=== PATIENT | male | born 1940 | race Caucasian/White ===

== ENCOUNTER 2017-04-19 14:02 | Day surgery (SDC) | payer MEDICARE ==
[~2017-04-19] VITALS: Ht 177.8 cm; Wt 84.0 kg
[~2017-04-19 14:02] MED LIST: ALBU8.5H2 IH; AMLO10TA3 PO; ASPI-628 PO; ATEN50TA PO; DIAZ10TA3 PO; FUR20 PO; Furosemide 10 mg/mL 2 mL Inj IV ONE; METF500T4 PO; SIMV40TA5 PO
[2017-04-19 14:15] VITALS: BP 142/78; PULSE 51; RESP 16; O2SAT 95
[2017-04-19 14:45] VITALS: BP 129/80; PULSE 66; RESP 16; O2SAT 96
[2017-04-19 15:14] VITALS: BP 143/78; PULSE 67; RESP 16
[2017-04-19 15:50] VITALS: BP 143/71; PULSE 74; RESP 16; O2SAT 97
[2017-04-19 16:18] VITALS: BP 148/71; PULSE 71; RESP 16; O2SAT 97
[2017-04-19] MEDS ORDERED: CARV6.25 PO (16:33)
--- NOTE | 2017-04-19 17:30 | NUR ---
MOC- Patient arrived to unit with . Denies complaints. Lasix 40mg IV given per order. Patient voiding per urinal and had 1025cc output after med in approx. 2 hours time period. VSS monitored every 30 minutes and remained stable.
== END 2017-04-19 23:59 | disposition home or self-care (01) ==
LOC: MOCO 14:02
PROVIDERS: ATTEND Internal Medicine
DX: I50.22 Chronic systolic (congestive) heart failure (principal); I25.10 Atherosclerotic heart disease of native coronary artery without angina pectoris; I42.9 Cardiomyopathy, unspecified; R60.9 Edema, unspecified; Z95.1 Presence of aortocoronary bypass graft
CPT/HCPCS: 96374; J1940

== ENCOUNTER 2017-06-10 00:16 | Day surgery (SDC) | payer MEDICARE ==
[2017-06-10] VITALS (14 sets, daily range): BP systolic 137–167; BP diastolic 63–96; PULSE 60–73; RESP 14–18; O2SAT 96–98
[~2017-06-10] VITALS: Ht 177.8 cm; Wt 85.1 kg
[~2017-06-10 00:16] MED LIST changes: -AMLO10TA3 PO; -ASPI-628 PO; +ASPI-973 PO; -ATEN50TA PO; +CARV6.25 PO; +CHOL5000 PO; +CYAN500 PO; -DIAZ10TA3 PO; -FUR20 PO; -Furosemide 10 mg/mL 2 mL Inj IV ONE; -METF500T4 PO; +TORS20TA3 PO; +TRAM50TA2 PO
[2017-06-10] MEDS ORDERED: 0.9% Sodium Chloride 1,000 ML IV SCH (07:40)
[2017-06-10 11:53] LABS: BASOPHILS % (AUTO) 0.4 % (0-3); EOSINOPHILS % (AUTO) 1.2 % (0-5); MONOCYTES % (AUTO) 6.3 % (4-12); Mean Corpuscular Volume 88.7 fL (81-100); NEUTROPHILS % (AUTO) 78.3 % (40-74); Platelet Count 186 bil/L (150-400)
[2017-06-10] MEDS ORDERED: Vancomycin Inj 1,000 MG in IV Premix 1 EACH IV SCH (12:05)
[2017-06-10] MEDS ORDERED: GLIM1TAB PO (12:10)
[2017-06-10] MEDS ORDERED: LISI2.5T PO (12:10)
[2017-06-10] MEDS ORDERED: Heparin 10,000 Unit/1,000 mL NS Premix IV ONE ×2 (12:21→14:30)
[2017-06-10] MEDS ORDERED: Vancomycin 1,000 mg Inj ONE (12:21)
[2017-06-10] MEDS ORDERED: Bupivacaine-MPF 0.5% 30 mL Inj ONE (12:21)
[2017-06-10] MEDS ORDERED: 0.9% Sodium Chloride 250 ML ONE (12:49)
[2017-06-10] MEDS ORDERED: fentaNYL-PF 50 mCg/mL 2 mL Inj ONE ×2 (13:01→13:55)
--- NOTE | 2017-06-10 13:04 | NUR ---
KIMANI: Pt arrived to [facility] for ICD placement at 1110 to room 5. VSS, no c/o pain. IV X2 started, blood drawn and labs sent per order, pt and both state understanding to procedural expectations. Pt taken to wheelabrator operator for procedure per wheelabrator operator staff around 1245.
[2017-06-10] MEDS: 0.9% Sodium Chloride 1,000 ML IV SCH (15:17)
[2017-06-10] MEDS ORDERED: HYDROcodone-APAP 5-325 mg Tablet PO PRN (15:20)
[2017-06-10] MEDS ORDERED: Ondansetron 2 mg/mL 2 mL Inj IVPUSH PRN (15:20)
--- NOTE | 2017-06-10 16:13 | DRSVH ---
PROCEDURE: X-RAY CHEST ONE VIEW, PORTABLE ([id number]) INDICATIONS: For new leads placed TECHNIQUE: One view of the chest was acquired. COMPARISON: None. FINDINGS: Surgical changes and devices: Median sternotomy wires present and recent placement of left chest AICD . Lungs and pleura: No pleural effusions or pneumothorax. Lungs are clear. Mediastinum: Mediastinal contours appear normal. Heart size is normal. Bones and chest wall: No suspicious bony lesions. Overlying soft tissues appear unremarkable. IMPRESSION: No immediate complications status post cardiac pacemaker placement. Dictated by: Darryl Joaquin [facility] Interpreted: Karol Martins MD on 06/10/2017 at 16:11 Transcribed by: DENEEN on 06/10/2017 at 16:11 Approved by: Karol Martins MD, PhD on 06/10/2017 at 16:21
--- NOTE | 2017-06-10 18:15 | NUR ---
Transfer Pt transferred from [facility] following placement of Biventricular IVCD. Dressing on upper L Chest is C/D/I with a faint shadow of pink drainage outlined. Pt is Alert and oriented, RA, SL x2. Denies pain at this time, steady gait observed. Pt is accompanied by Zeina (spouse). Pt reports will have a friend drive then home at discharge. Call light in reach, will continue to monitor.
[2017-06-10] MEDS ORDERED: Albuterol 2.5 mg/3 mL Inhalation Solution NEB PRN (18:35)
--- NOTE | 2017-06-10 22:14 | OP ---
[address] [address] OPERATIVE REPORT PATIENT: ITZEL HARRISON : 1940 MR#: [id number] ADMIT: 06/10/2017 JOB ID: [id number] DATE OF SURGERY: 06/10/2017 PREOPERATIVE DIAGNOSIS(ES): 1. Severe ischemic cardiomyopathy with ejection fraction 25% to 30%. 2. Coronary artery disease, status post bypass grafting. 3. Left bundle-branch block with QRS duration 166 msec. 4. [place] [employer] class 3 heart failure symptoms. POSTOPERATIVE DIAGNOSIS(ES): 1. Severe ischemic cardiomyopathy with ejection fraction 25% to 30%. 2. Coronary artery disease, status post bypass grafting. 3. Left bundle-branch block with QRS duration 166 msec. 4. [place] Heart Association class 3 heart failure symptoms. PROCEDURES PERFORMED: 1. Biventricular implantable cardioverter-defibrillator implantation with placement of a multilead ICD generator, ICD lead, coronary sinus LV lead and right atrial pacing lead. 2. Coronary sinus venogram. 3. Fluoroscopy. SURGEON: Everardo Diamond MD. ROOM WORKER: Negra Saldana. IMPLANTED DEVICE: 1. [employer], Model [id number], serial #[id number]. 2. Right atrial lead [employer] 2088 TC, 52 cm, serial #[id number]. 3. RV lead [employer] 7122Q, 65 cm, serial #[id number]. 4. LV lead [employer] 1458Q, 86 cm, serial #[id number]. ANESTHESIA: Bolus dosing of Versed and fentanyl were utilized for an appropriate level of sedation. The patient is a pleasant 77-year-old man with advanced heart failure symptomology, ischemic heart disease, left bundle-branch block. After discussion of risks and benefits of biventricular ICD implantation, he opted to proceed. PROCEDURAL DESCRIPTION: Following informed signed consent, the patient was taken to the EP laboratory in a fasting, nonsedated state where he was prepped and draped in the usual sterile fashion. The left infraclavicular region was infiltrated with 40 cc of a 50/50 mixture of bupivacaine and lidocaine. Once adequate anesthesia had been achieved, a 3 cm transverse incision was performed 2 cm below the left clavicle. Dissection was carried down to the pectoralis fascia and a pocket was then fashioned using a combination of electrocautery and blunt dissection. Once adequate hemostasis had been achieved, access was gotten to the left axillary vein with a micropuncture needle three times to deploy three 0.035, 3 mm J guidewires. Over the first of these, a 7-Luxembourger tear-away sheath was advanced. Once the guidewire was removed, an active fixation lead was advanced to the RV outflow tract and into the RV apex. The lead was affixed in position using its associated active fixation screw. The lead was connected to the external analyzer and demonstrated appropriately sensed R waves,impedance, and capture threshold. The lead was checked to 10 V and there was no evidence of diaphragmatic stimulation. Attention was now paid to the coronary sinus lead. Over another of the previously deployed J guidewires, a 9-Luxembourger tear-away sheath was advanced. Once the guidewire was removed, a [employer] CS delivery sheath was delivered over a decapolar Super CS catheter which was then used to engage the coronary sinus. A manual injection of contrast showed the patent coronary sinus without appreciable branches with the exception of one small branch at the 2 o'clock position. The sheath was pulled back and another injection was done with balloon occlusion showing a larger branch at the 5 o'clock position just past the coronary sinus os and beyond the middle cardiac vein. This was chosen as our branch of choice. A quadripolar CS lead was brought to the field and advanced into the branch of choice over a Whisper wire. The lead was connected to the external analyzer and demonstrated appropriately sensed R waves, impedance, capture threshold. The lead was checked to 10 V and there was no evidence of diaphragmatic stimulation. The short 9-Luxembourger sheath was slit loose and the atrial lead was tended to. Next, a 6-Luxembourger tear-away sheath was advanced over the last of the three J guidewires. Through this, a pace sensed pacemaker lead was advanced to the right atrial appendage. It was affixed in position using an active fixation screw it was connected to the external analyzer and demonstrated appropriately sensed R waves, impedance, and capture threshold. Lead was checked to 10 V and there was no evidence of diaphragmatic stimulation. Finally, the long CS delivery sheath was slit loose under fluoroscopic guidance to ensure nondislodgement of the lead. Once the position and redundancy of all three leads had been confirmed in multiple fluoroscopic views, the leads were connected to the prepectoral fascia using the associated anchoring sleeves and two Ethibond sutures. The pocket was then copiously irrigated with antibiotic solution. The leads were connected to a generator, the generator was placed into the pocket and was affixed to the floor of the pocket using 1-0 Ti-Cron suture. The incision was then closed with running layers of absorbable suture. The wound was dressed with skin adhesive and a small dressing. At the end of the procedure, the needle, sponge, and instrument counts were all correct. COMPLICATIONS: None. ESTIMATED BLOOD LOSS: 10-20 cc. FINDINGS: 1. Right atrial lead 2.3 mV, 410 ohms, 0.75 V at 0.4 msec. 2. RV lead 11.9 mV, 530 ohms, 0.5 V at 0.4 msec. 3. LV lead, 440 ohms, 1.25 V at 1 msec (M3 to RV coil). FINAL PROGRAMMED PARAMETERS: 1. DDD 60-130 beats per minute. 2. VF zone at 187 beats per minute. ATP during charge, followed by shocks. 3. VT zone at 171 beats per minute with six rounds of ATP, followed by shocks. 4. VT monitor zone at 150 beats per minute. IMPRESSION: Successful biventricular implantable cardioverter-defibrillator implantation. PLAN: 1. Stat portable chest x-ray. 2. PA and lateral chest x-ray in the morning. 3. Device interrogation. 4. IV vancomycin through tomorrow. 5. Doxycycline x7 days. 6. Wound check in one week. ATTENDING STATEMENT: Everardo Diamond MD, electrophysiology attending, was present for and supervised/performed all aspects of this procedure.
[2017-06-11 00:38] VITALS: BP 158/94; PULSE 65; RESP 18; O2SAT 99
[2017-06-11] MEDS: 0.9% Sodium Chloride 1,000 ML IV SCH (01:17)
[2017-06-11] MEDS ORDERED: Vancomycin Inj 1,000 MG in IV Premix 1 EACH IV ONE (03:20)
--- NOTE | 2017-06-11 04:09 | NUR ---
PT ACTIVITY/PAIN Pt has been up in room, independent. Pt has had intermittent c/o "5-7" pain at pacemaker site. PRN pain medication and ice have alleviated pain symptoms for pt. Continue to monitor. Call light in reach. Pts in room. Intentional rounding.
[2017-06-11 04:54] VITALS: BP 164/89; PULSE 76; RESP 18; O2SAT 96
[2017-06-11 08:35] VITALS: BP 181/98; PULSE 79; RESP 20; O2SAT 98
--- NOTE | 2017-06-11 09:39 | PCM.DIMED ---
Discharge Instructions Date of Service Jun 11, 2017 Dates of Hospitalization Discharge Diagnosis Discharge Diagnosis Ischemic Cardiomyopathy LBBB Diabetes Hypertension Diet Discharge Diet: Low fat, Low Sodium, Heart Healthy, Diabetic Activity Discharge Activity: Other (Keep incision dry one day. Do not extend left elbow high above shoulder for one month. Do not lift, push or pull more than 10 lbs with the left arm for one month.) Call your provider Call your provider for: Fever or Chills, Bleeding, Excessive diarrhea Patient Instructions Follow-up in: 1 week Mid-level Provider (F9): Lyle Miller PA-C Follow-up with Mid-level in: 6 weeks (Appt. on 08-08-17 on 1:30 (arrival time) at [facility] Cardiology - [place]) Lyle Miller PA-C Jun 11, 2017 09:39
[2017-06-11] MEDS ORDERED: DOXY100C2 PO (10:05)
--- NOTE | 2017-06-11 10:31 | DRSVH ---
PROCEDURE: X-RAY CHEST, TWO VIEWS ([id number]) INDICATIONS: For new lead placement TECHNIQUE: 2 views of the chest were acquired. COMPARISON: [facility], CR, XR CHEST 1VW (PORTABLE), 06/10/2017, 15:21. [facility], CR, XR CHEST 2VW, 04/05/2017, 11:11. FINDINGS: Surgical changes and devices: Post median sternotomy. Stable positioning of left chest AICD. Lungs and pleura: No pleural effusions or pneumothorax. Lungs are clear. Mediastinum: Mediastinal contours are normal. Heart size is enlarged. Bones and chest wall: No suspicious bony abnormalities. Soft tissues appear unremarkable. IMPRESSION: Stable chest post pacer placement. Dictated by: Darryl Joaquin A Interpreted: Karol Martins MD on 06/11/2017 at 10:21 Approved by: Karol Martins MD, PhD on 06/11/2017 at 10:28
[2017-06-11 10:42] VITALS: PULSE 62
--- NOTE | 2017-06-11 10:43 | DIS ---
[address] [address] DISCHARGE SUMMARY PATIENT: ITZEL HARRISON : 1940 MR#: [id number] ADMIT: 06/10/2017 JOB ID: [id number] DIS: 06/11/2017 REASON FOR ADMISSION: Biventricular defibrillator implant. CHIEF COMPLAINT: Exertional dyspnea and lightheadedness. HISTORY: The patient is a pleasant, 77-year-old man, with known coronary artery disease and prior bypass grafting with now a severe ischemic cardiomyopathy and an LV ejection fraction of 25-30%, with left bundle branch block and a QRS duration of 166 msec. He also has diabetes mellitus and, despite optimal heart function medications, he continues to have exertional dyspnea, and has had some lightheadedness. He has not had syncope or prior cardiac arrest, but is at increased risk. He was admitted for implant of a biventricular pacing defibrillator. COURSE IN HOSPITAL: The patient was admitted to the [facility] and taken to the laborer wood preserving plant, where he received the 3-chamber pacing defibrillator device without incident. He was taken back to the [facility] for recovery from sedation and then transferred up to the [facility] for overnight telemetry monitoring. He did well overnight and had no bleeding from the incision. The pocket is without hematoma. His chest x-ray in the morning showed good lead positions and no pneumothorax. Device evaluation showed good capture and sensing thresholds. He was ambulatory without difficulty and felt well for discharge home. He had only mild incisional area pain and noted actually feeling less short of breath. DISPOSITION: The patient was discharged home in good condition with a followup appointment at the [facility] Cardiology office in one week. He was asked not to extend his left elbow above the shoulder for one month, and not to lift, push or pull more than 10 pounds with the left arm for one month. He will follow his heart healthy, low-salt diet and diabetic diet, and take medications as prescribed. DISCHARGE MEDICATIONS: This is a long list. MEDICATIONS: 1. Doxycycline 100 mg daily for one week. 2. Albuterol inhaler, 2 puffs q.4 h. p.r.n. wheezing. 3. Aspirin 81 mg daily. 4. Carvedilol 6.25 mg b.i.d. 5. Vitamin D3, 5000 units daily. 6. Vitamin B12, 1000 mcg daily. 7. Glimepiride 1 mg daily. 8. Lisinopril 2.5 mg daily. 9. Simvastatin 40 mg q.h.s. 10. Torsemide 40 mg daily. 11. Tramadol 50 mg, 1 or 2 tabs p.o. q.6 h. p.r.n. pain. FINAL DIAGNOSES: 1. Ischemic cardiomyopathy. 2. Diabetes mellitus. 3. Hypertension. 4. Left bundle branch block.
== END 2017-06-11 11:17 | disposition home or self-care (01) ==
LOC: SOUO 00:16 → MPC 18:05 → SOUO 06-11 11:17
PROVIDERS: ATTEND Internal Medicine Cardiovascular Disease
DX: I25.5 Ischemic cardiomyopathy (principal); Z00.6 Encounter for examination for normal comparison and control in clinical research program; I25.10 Atherosclerotic heart disease of native coronary artery without angina pectoris; Z95.1 Presence of aortocoronary bypass graft; N40.0 Benign prostatic hyperplasia without lower urinary tract symptoms; I44.7 Left bundle-branch block, unspecified; I10 Essential (primary) hypertension; N28.9 Disorder of kidney and ureter, unspecified; E78.5 Hyperlipidemia, unspecified; Z79.82 Long term (current) use of aspirin; Z79.84 Long term (current) use of oral hypoglycemic drugs
CPT/HCPCS: 33225; 33249; 36415; 71010; 71020; 80048; 85025; 85610; 93005; 94799; 99152; 99153; C1725; C1769; C1777; C1882; C1892; C1898; C1900; J0131; J1644; J2250; J3010; J3370; J7050

== ENCOUNTER 2017-07-02 14:42 | Emergency (ER) | payer MEDICARE ==
[~2017-07-02] VITALS: Ht 177.8 cm; Wt 81.8 kg
[~2017-07-02 14:42] MED LIST changes: +DOXY100C2 PO; +GLIM1TAB PO; +LISI2.5T PO
[2017-07-02 14:51] VITALS: BP 178/88; PULSE 84; RESP 15; O2SAT 97
--- NOTE | 2017-07-02 15:31 | ED.REPORT ---
HPI-Extremity Problem Upper Date of Service Jul 02, 2017 ED Provider: Dr. De Anda Pt is a 77 y/o male anticoagulated on Eliquis w/ a hx of known LUE DVT, DM, CAD s/p CABG, HTN, ischemic cardiomyopathy, presenting to the ED c/o worsening of left forearm and hand swelling onset 2 weeks ago. 2 weeks ago, he had a pacemaker/defibrillator paced by enterprise infrastructure architect Dr. Diamond. Afterwards he developed entire LUE edema and an US showed evidence of DVT prompted him to be started on Eliquis 5 mg BID about 4 days ago. He was also started on Keflex incase of infection. His edema causes him some mild pain. He says that his edema has been worsening since started Eliquis. Pt denies fever, chills, diaphoresis. Nursing Notes Stated Complaint: LEFT ARM/HAND SWELLING Chief Complaint: Extremity Trauma Nursing Notes Reviewed: Yes Allergies: Coded Allergies: No Known Allergies (Unverified , 05/06/17) Scheduled Aspirin (Aspirin) 81 Mg Tablet 81 MG PO DAILY Carvedilol (Coreg) 6.25 Mg Tablet 6.25 MG PO BID Cholecalciferol (Vitamin D3) (Vitamin D3) 5,000 Unit Capsule 5,000 UNIT PO DAILY Cyanocobalamin (Vitamin B12) 500 Mcg Tablet 1,000 MCG PO DAILY Doxycycline Hyclate (Doxycycline Hyclate) 100 Mg Capsule 100 MG PO DAILY Glimepiride (Glimepiride) 1 Mg Tablet 1 MG PO DAILYAC Lisinopril (Lisinopril) 2.5 Mg Tablet 2.5 MG PO DAILY Simvastatin (Simvastatin) 40 Mg Tablet 40 MG PO HS Sulfamethoxazole/Trimeth 400-80 mg (Bactrim 400-80 mg) 1 Each Tablet 1 TABLET PO BID Sulfamethoxazole/Trimeth 400-80 mg (Bactrim 400-80 mg) 1 Each Tablet 1 TABLET PO BID Torsemide (Torsemide) 20 Mg Tablet 40 MG PO DAILY Tramadol (Tramadol) 50 Mg Tablet 1-2 TAB PO Q6HPRN Scheduled PRN Albuterol HFA (Proair HFA) 8.5 Gm Hfa.aer.ad 2 PUFFS IH Q4 PRN PRN For Wheezing General Time Seen by MD: 15:31 Chief Complaint Other (L arm swelling) Hx Obtained From: Patient Arrived By: Walk-in Onset Occurred: More than a week ago... (2 weeks) Symptom Duration: Since onset Location: : Arm left Quality: Painful Severity: Current: Mild Severity: Maximum: No pain Associated with: Reports: Swelling Pertinent Negative: Exacerbated by nothing Recent Healthcare: Recent doctor visit, Recent testing, Previous diagnosis, Previous surgery, Prior workup Similar Sx Previous: No Past Medical History Past Medical History Ischemic cardiomyopathy. Diabetes mellitus. Hypertension. Left bundle branch block CAD s/p CABG COPD Bilateral cataracts LUE DVT after a pacemaker insertion Past Surgical History CABG Smoking History Never Smoker Social History Alcohol Use: "Social" Drug Use: Denies drug use Other Social History: Good social support Ambulatory Status Independent Review of Systems Constitutional: Denies: Chills, Fever Musculoskeletal: Reports: Extremity pain, Extremity swelling Skin: Denies Diaphoresis, Denies Rash Complete sys rev & neg: except as marked. Physical Exam Initial Vital Signs Vital Signs (First) Date Time Temp Pulse Resp B/P Pulse Ox O2 Delivery O2 Flow Rate FiO2 07/02/17 14:51 36.5 84 15 178/88 97 Room Air Initial VS: Reviewed, Vital signs abnormal Head / Eyes: Atraumatic, Normocephalic ENT: Mucous membranes moist, Conjunctiva normal Neck: Supple, Full range of motion Respiratory: Breath sounds normal, Clear to auscultation, No respiratory distress Cardiovascular: Regular rate & rhythm, Heart sounds normal, Intact distal pulses Abdomen / GI: Soft, Non-tender Lower Extremities: Vascular intact, Neuro intact, No swelling Skin: Warm, Dry, No cyanosis Neurologic: Alert, Oriented, Nonfocal Psychiatric: Mood/affect normal, Behavior normal, Normal thought content General/Constitutional: Awake, Alert, No acute distress, Well appearing, Cooperative, Not toxic appearing Upper Extremity / MS: Atraumatic, Full range of motion, Non-tender, No erythema , No deformity, Neurologic intact, Vascular intact, No clubbing/cyanosis Significant swelling of LUE that extends from the hand up to lower arm. Mildly warm. No erythema. Puncture wound back of left hand with no erythema, pus, or drainage. Signs of previous bleeding present. 2/4 radial and ulnar pulses Interpretation & Diagnostics Interpretation & Diagnostics: US LUE: DVT still present but without progression Lab Results Interpretation Result Diagram: 07/02/17 1621 07/02/17 1621 Test 07/02/17 16:21 White Blood Count 10.1th/mm3 (3.8-10.1) Red Blood Count 3.91mil/mm3 (4.40-5.80) Hemoglobin 10.8g/dL (13.8-17.2) Hematocrit 33.3% (41.0-50.0) Mean Corpuscular Volume 85.2fL (81-100) Mean Corpuscular Hemoglobin 27.6pg (27.0-35.0) Mean Corpuscular Hemoglobin Concent 32.4% (32.0-37.0) Red Cell Distribution Width 14.1% (12.3-15.4) Platelet Count 275bil/L (150-400) Neutrophils (%) (Auto) 78.5% (40-74) Lymphocytes (%) (Auto) 10.1% (14-46) Monocytes (%) (Auto) 10.0% (4-12) Eosinophils (%) (Auto) 1.0% (0-5) Basophils (%) (Auto) 0.2% (0-3) Erythrocyte Sedimentation Rate 65mm/hr (0-30) Prothrombin Time 10.9sec (8.1-12.5) Prothromb Time International Ratio 1.02ratio Activated Partial Thromboplast Time 31.0sec (22.8-33.0) Sodium Level 137mEq/L (134-144) Potassium Level 4.4mEq/L (3.5-5.2) Chloride Level 96mEq/L (97-108) Carbon Dioxide Level 24mmol/L (18-29) Blood Urea Nitrogen 45mg/dL (8-27) Creatinine 2.52mg/dL (0.76-1.27) Estimat Glomerular Filtration Rate 27mL/min (>59) Glucose Level 101mg/dL (60-99) Lactic Acid Level 0.7mmol/L (0.4-2.0) Calcium Level 9.4mg/dL (8.5-10.1) Total Bilirubin 0.4mg/dL (0.0-1.2) Aspartate Amino Transf (AST/SGOT) 17U/L (0-50) Alanine Aminotransferase (ALT/SGPT) 12U/L (0-44) Alkaline Phosphatase 73U/L (25-160) C-Reactive Protein 15.1mg/dL (0.0-0.5) Total Protein 7.7g/dL (6.4-8.4) Albumin 3.9g/dL (3.4-5.0) Procalcitonin 0.31ng/mL (0.00-0.08) Re-Eval/Medical Decision Med Decision/Clinical Course 77-year-old male with a history of recently diagnosed left upper extremity DVT placed on elequis one week ago and possible cellulitis on Keflex, presents with increasing left arm swelling and pain. His arm does not appear definitively cellulitic, however his inflammatory markers are elevated and his symptoms have been worsening. I repeated an ultrasound of his left upper extremity to see if his clot burden had increased despite being on elequis, but ultrasound showed similar clot burden. Given his increasing inflammatory markers and his acute kidney injury, I recommended that he be admitted to the hospital for IV antibiotics and evaluation and treatment of his kidney injury. The patient adamantly refused and wanted to leave AGAINST MEDICAL ADVICE. I advised that we ought to at least add a second antibiotic such as Bactrim to his Keflex and have him follow-up with his PCP later this week. Patient was agreeable to this , but left before his Bactrim prescription could be given to him along with his discharge papers. His nurse called him to let him know this was being sent to his local pharmacy, which I did. Re-Evaluation/Progress : Time of Eval: 17:02 Re-Evaluation/Progress Note: Pt rechecked. Discussed US findings and lab results. I recommended admission given his increasing infection markers and worsening kidney function despite being on Keflex. He adamantly refuses admission because he feels fine. Discussed the possibility that he may go into renal failure or have worsening infection in his arm which could cause . He still wants to be discharged. He will leave AGAINST MEDICAL ADVICE. F/U instructions and RTER warnings given. All questions addressed. Counseled Regarding: Diagnosis, Lab results, Need for follow-up, When/why to return to ED Discharge & Departure Impression: Primary Impression: Deep venous thrombosis of left upper extremity Affected thrombotic vein of extremity: unspecified vein of extremity Chronicity: acute Qualified Code: I82.622 - Acute embolism and thrombosis of deep veins of left upper extremity Additional Impressions: ALYSIA (acute kidney injury) Cellulitis Site of cellulitis: extremity Site of cellulitis of extremity: upper extremity Laterality: left Qualified Code: L03.114 - Cellulitis of left upper limb Disposition: AGAINST MEDICAL ADVICE Discharge Condition All VS Reviewed: Yes Condition: Stable Additional Instructions: The ultrasound showed that you still have a venous blood clot in your arm but it has not worsened. Your kidney function has significantly decreased and you do have elevated markers of infection. I recommended you be admitted today for these problems but you have declined. I would like you to take the full courses of both antibiotics, the Keflex that you have are restarted and now the Bactrim that I am prescribing you today. You need to follow-up with Dr. Gutierrez within 1 week. Earlier would be better. This is important. Tell him the situation and try to get in. Return to the emergency department for any new or worsening symptoms, and plan on being admitted if things are worsening. Referrals: Dwayne Gutierrez DO (PCP) Everardo Diamond MD Scribe Attestation Portions of this note were transcribed by Clif Snyder. I, Dr. De Anda personally performed the history, physical exam and medical decision-making; I reviewed and confirmed the accuracy of the information in the transcribed note. copies to: Everardo Diamond MD; Dwayne Gutierrez Gary R DO Jul 02, 2017 15:31 CLIF SNYDER Jul 02, 2017 15:38
[2017-07-02 16:37] LABS: BASOPHILS % (AUTO) 0.2 % (0-3); Mean Corpuscular Hemoglobin 27.6 pg (27.0-35.0); Mean Corpuscular Volume 85.2 fL (81-100); NEUTROPHILS % (AUTO) 78.5 % (40-74); Platelet Count 275 bil/L (150-400)
[2017-07-02 16:40] LABS: ERYTHROCYTE SEDIMENTATION RATE 65 mm/hr (0-30)
[2017-07-02 16:43] LABS: INR 1.02 ratio
[2017-07-02] MEDS ORDERED: SULF1TAB34 PO ×2 (17:34→18:16)
--- NOTE | 2017-07-02 22:46 | DRSVH ---
PROCEDURE: US VENOUS ARM DUPLEX UNILATERAL, LEFT INDICATIONS: LUE swelling s/p pacemaker placement TECHNIQUE: Real-time imaging, as well as color and pulse Doppler interrogation, was performed of the left upper extremity deep veins from the inferior neck to the antecubital fossa. COMPARISON: US Noe, US VENOUS ARM DPLX UNI LT, 06/27/2017, 16:18. FINDINGS: Partial clot seen within the right internal jugular vein. Visualized portions of the subcl shonna vein, axillary, and brachial veins are free of intraluminal thrombus. Where physically possibl e, the veins are normally compressible. Color and pulse Doppler demonstrate normal intraluminal flow , with expected phasicity and pulsatility. Additional scanning of the cephalic and basilic veins of the superficial system demonstrate a small segment of clot within the brachial vein of the distal arm . IMPRESSION: 1. Clot within the left internal jugular vein and the left brachial vein in the arm. Dr. De Anda given results bibasilar referring 1630 hrs. 07/02/2017. Dictated by: Darryl Joaquin [facility] Interpreted: Lyle Velásquez MD on 07/02/2017 at 17:09 Approved by: Lyle Velásquez M.D. on 07/02/2017 at 22:45
== END 2017-07-02 18:21 | disposition left against medical advice (07) ==
LOC: SED 14:42
DX: I82.622 Acute embolism and thrombosis of deep veins of left upper extremity (principal); E11.29 Type 2 diabetes mellitus with other diabetic kidney complication; I13.10 Hypertensive heart and chronic kidney disease without heart failure, with stage 1 through stage 4 chronic kidney disease, or unspecified chronic kidney disease; N17.9 Acute kidney failure, unspecified; I25.10 Atherosclerotic heart disease of native coronary artery without angina pectoris; Z95.1 Presence of aortocoronary bypass graft; Z79.82 Long term (current) use of aspirin

== ENCOUNTER 2017-07-26 10:43 | Inpatient (IN) | payer MEDICARE ==
[~2017-07-26] VITALS: Ht 177.8 cm; Wt 84.8 kg
[2017-07-26] VITALS (8 sets, daily range): BP systolic 109–157; BP diastolic 58–89; PULSE 66–93; RESP 12–18; O2SAT 96–99
[~2017-07-26 10:43] MED LIST changes: +SULF1TAB34 PO
--- NOTE | 2017-07-26 11:39 | ED.REPORT ---
HPI-Extremity Problem Lower Date of Service Jul 26, 2017 ED Provider: Dr. Manny Potter MD A 77 year old male with a history of type II diabetes mellitus, ischemic cardiomyopathy, hypertension, LUE DVT secondary to pacemaker insertion. COPD, CAD s/p CABG and recent pacemaker placement (06/10/17) presents to the ED with joint swelling that began yesterday. Affected areas include the patient's bilateral knees, bilateral ankles, and left wrist. He endorses significant swelling, pain and warmth the affected joints. He has been unable to stand due to the discomfort. Recent NM scan on 07/25 revealed possible osteomyelitis involving the left hand and osteoarthritis involving the bilateral wrists and 1st-4th interphalangeal joints. Patient is currently on Eloquis and took his dose this morning LAP HAND TOOL. He denies recent fever or chills. Nursing Notes Stated Complaint: BILATERAL KNEE, FEET, AND ARMS SWELLING Chief Complaint: Extremity Trauma Nursing Notes Reviewed: Yes Allergies: Coded Allergies: No Known Allergies (Unverified , 07/26/17) Scheduled Apixaban (Eliquis) 5 Mg Tablet 5 MG PO BID Carvedilol (Coreg) 6.25 Mg Tablet 6.25 MG PO BID Cholecalciferol (Vitamin D3) (Vitamin D3) 5,000 Unit Capsule 5,000 UNIT PO DAILY Glimepiride (Glimepiride) 1 Mg Tablet 1 MG PO DAILYAC Lisinopril (Lisinopril) 2.5 Mg Tablet 2.5 MG PO QPM Simvastatin (Simvastatin) 40 Mg Tablet 40 MG PO HS Torsemide (Torsemide) 20 Mg Tablet 20 MG PO BID Scheduled PRN Albuterol HFA (Proair HFA) 8.5 Gm Hfa.aer.ad 2 PUFFS IH Q4 PRN PRN For Wheezing Tramadol (Tramadol) 50 Mg Tablet 1 TAB PO QID PRN PRN For Pain General Time Seen by MD: 11:39 Chief Complaint Other (Multiple Joint Swelling) Hx Obtained From: Patient Arrived By: Walk-in Onset Occurred: Yesterday Symptom Duration: Since onset Location: : Ankle left: Ankle right: Knee left: Knee right Quality: Painful Severity: Current: Moderate Severity: Maximum: Moderate Associated with: Reports: Swelling, Unable to walk Pertinent Negative: Pt denies other symptoms Recent Healthcare: No recent hospitalization, Recent doctor visit Past Medical History Past Medical History Ischemic cardiomyopathy. Diabetes mellitus. Hypertension. Left bundle branch block CAD s/p CABG COPD Bilateral cataracts LUE DVT after a pacemaker insertion Past Surgical History CABG Reports: Pacemaker insertion Smoking History Never Smoker Social History Alcohol Use: "Social" Drug Use: Denies drug use Other Social History: Good social support Ambulatory Status Independent Review of Systems + joint warmth Constitutional: Denies: Chills, Fever Musculoskeletal: Reports: Joint pain, Joint swelling Complete sys rev & neg: except as marked. Physical Exam Initial Vital Signs Vital Signs (First) Date Time Temp Pulse Resp B/P Pulse Ox O2 Delivery O2 Flow Rate FiO2 07/26/17 10:52 37.2 66 15 109/58 96 Room Air Initial VS: Reviewed Head / Eyes: Atraumatic, Normocephalic, PERRL Neck: Supple, Non-tender, Full range of motion Skin: Warm, Dry, No cyanosis Neurologic: Alert, Oriented, Nonfocal Psychiatric: Mood/affect normal, Behavior normal, Normal thought content Lower Extremity / Pelvis / MS: Atraumatic, Neurologic intact, Vascular intact Right Knee: Positive: Swelling present..., Tenderness present..., Warmth present Left Knee: Positive: Joint effusion present (Palpable), Swelling present..., Tenderness present..., Warmth present LOWER EXTREMITIES: No overriding cellulitis present Ankle / Foot: Atraumatic, Neurologic intact, Vascular intact Right Ankle: Positive: Swelling present..., Tenderness present..., Warmth present Left Ankle: Positive: Swelling present..., Tenderness present..., Warmth present ANKLE: No overriding cellulitis present General/Constitutional: Awake, Alert, No acute distress Respiratory / Chest: Atraumatic, Breath sounds NL, Breath sounds = bilat, No respiratory distress Cardiovascular: Heart rate NL, Regular rhythm, Heart sounds NL Abdomen: Atraumatic, Soft, Non-tender Upper Extremity / MS: Atraumatic, Inspection NL, Neurologic intact, Vascular intact Wrist / Hand: Atraumatic, Neurologic intact, Vascular intact Left Wrist: Positive: Swelling present..., Warmth present WIRST: No overriding cellulitis present Interpretation & Diagnostics NM Scan 07/25/17 IMPRESSION: 1. Probable osteomyelitis involving the head of the second metacarpal and head of the fifth metacarpal and the base of the second proximal phalange. 2. Probable osteoarthritis involving the the wrists bilaterally, the first CMC joints bilaterally, the first interphalangeal joints bilaterally, the left second proximal interphalangeal joint, the left third metacarpal are from plain joint and the right fourth metacarpal-phalangeal. Dictated by: Karol Martins MD, PhD on 07/25/2017 at 16:19 Lab Results Interpretation Result Diagram: 07/26/17 1220 07/26/17 1220 Test 07/26/17 12:20 White Blood Count 10.2th/mm3 (3.8-10.1) Red Blood Count 3.69mil/mm3 (4.40-5.80) Hemoglobin 10.0g/dL (13.8-17.2) Hematocrit 31.3% (41.0-50.0) Mean Corpuscular Volume 84.8fL (81-100) Mean Corpuscular Hemoglobin 27.1pg (27.0-35.0) Mean Corpuscular Hemoglobin Concent 31.9% (32.0-37.0) Red Cell Distribution Width 15.0% (12.3-15.4) Platelet Count 189bil/L (150-400) Neutrophils (%) (Auto) 78.7% (40-74) Lymphocytes (%) (Auto) 9.7% (14-46) Monocytes (%) (Auto) 10.2% (4-12) Eosinophils (%) (Auto) 1.0% (0-5) Basophils (%) (Auto) 0.1% (0-3) Erythrocyte Sedimentation Rate 77mm/hr (0-30) Sodium Level 132mEq/L (134-144) Potassium Level 4.4mEq/L (3.5-5.2) Chloride Level 92mEq/L (97-108) Carbon Dioxide Level 21mmol/L (18-29) Blood Urea Nitrogen 36mg/dL (8-27) Creatinine 2.57mg/dL (0.76-1.27) Estimat Glomerular Filtration Rate 26mL/min (>59) Glucose Level 116mg/dL (60-99) Lactic Acid Level 1.0mmol/L (0.4-2.0) Calcium Level 9.5mg/dL (8.5-10.1) Magnesium Level 2.1mg/dL (1.6-2.6) Total Bilirubin 0.4mg/dL (0.0-1.2) Aspartate Amino Transf (AST/SGOT) 18U/L (0-50) Alanine Aminotransferase (ALT/SGPT) 10U/L (0-44) Alkaline Phosphatase 63U/L (25-160) Troponin T 0.034ug/L (0.0-0.011) Total Protein 7.3g/dL (6.4-8.4) Albumin 3.6g/dL (3.4-5.0) Procalcitonin 0.66ng/mL (0.00-0.08) ECG Interpretation ECG Interpretation: Atrial sensed ventricular paced complexes Rate 68 bpm Time: 11:56 Interpreted by: ED physician Normal ECG Interpretation: No change from prior ECGs (06/11/17) X-Ray Chest Interpretation Chest Xray Interpretation: IMPRESSION: Postoperative changes, no acute cardiopulmonary abnormality Dictated by: Ivan Shelby M.D. on 07/26/2017 at 12:28 Interpretation / Wet Read by: Interpret - Radiologist Re-Eval/Medical Decision Med Decision/Clinical Course Concern for infectious etiology, including osteomyelitis or multiple septic joints. Discussed with the patient the need for an arthrocentesis however he took his THIS morning and it will be deferred until he IS worn off. Broad spectrum antibiotics initiated after 3 sets of blood cultures. Discussed with both the hospitalist and infectious disease. Patient will be admitted. Re-Evaluation/Progress #1: Time of Eval: 12:13 Re-Evaluation/Progress Note: Pt is informed of potential arthrocentesis procedure. He understands and agree with plan. Re-Evaluation/Progress #2: Time of Eval: 12:53 Patient Status: Condition improved Re-Evaluation/Progress Note: His is informed of current results and the plan to admit for further work-up. All questions are addressed at this time. Consultation #1: Referral / Consult Name: Dwayne Bueno MD Call Returned at: 11:58 Photo Tech: Will see patient, Agrees with eval, Agrees with plan Note: Discussed patient condition. Requesting MRI of the hand and wrist and recommends attempting arthrocentesis Consultation #2: Referral / Consult Name: Dwayne Bueno MD Call Returned at: 13:03 Photo Tech: Will see patient, Agrees with eval, Agrees with plan Note: Infectious disease - Informed of patient's last Eloquis dose. Agrees to postpone arthrocentesis until Eolquis wears off. Consultation #3: Referral / Consult Name: Jazmyn Salcedo DO Consulted With: Hospitalist Call Returned at: 13:15 Photo Tech: Will see patient, Agrees with eval, Agrees with plan, Accepts admit Note: Discussed patient condition. Agrees to accept patient at this time with broad spectrm antibiotics. Counseled Regarding: Diagnosis, Lab results, Need for admission Discharge & Departure Impression: Primary Impression: Polyarteritis Disposition: ADMITTED TO HOSPITAL Discharge Condition All VS Reviewed: Yes Condition: Stable Referrals: Dwayne Gutierrez DO (PCP) Scribe Attestation Portions of this note were transcribed by Trish Jenkins. I, Dr. Vicki Potter, personally performed the history, physical exam and medical decision-making; I reviewed and confirmed the accuracy of the information in the transcribed note. Signed by: Trish Jenkins, 07/26/17. copies to: Dwayne Gutierrez Timothy S DO Jul 26, 2017 11:39 TRISH JENKINS Jul 26, 2017 11:52
[2017-07-26] MEDS ORDERED: 0.9% Sodium Chloride 1,000 ML IV ONE (11:50)
[2017-07-26] MEDS ORDERED: Vancomycin Dose per Pharmacist XX ONE (11:50)
[2017-07-26] MEDS ORDERED: Piperacillin-Tazo 3.375 Gm Inj 3.375 GM in Dextrose 5% Minibag Plus 50 ML IV ONE (11:50)
[2017-07-26] MEDS ORDERED: Vancomycin Inj 1,750 MG in 0.9% Sodium Chloride 500 ML IV ONE (12:10)
--- NOTE | 2017-07-26 12:30 | DRSVH ---
PROCEDURE: X-RAY CHEST ONE VIEW, PORTABLE ([id number]) INDICATIONS: infection TECHNIQUE: One view of the chest was acquired. COMPARISON: 06/11/2017 FINDINGS: Surgical changes and devices: AICD. Median sternotomy with CABG. Lungs and pleura: No pleural effusions or pneumothorax. Lungs are clear. Mediastinum: Mediastinal contours appear normal. Heart size is normal. Bones and chest wall: No suspicious bony lesions. Overlying soft tissues appear unremarkable. IMPRESSION: Postoperative changes, no acute cardiopulmonary abnormality Dictated by: Ivan Shelby M.D. on 07/26/2017 at 12:28 Approved by: Ivan Shelby M.D. on 07/26/2017 at 12:29
[2017-07-26] MEDS ORDERED: Lidocaine 1%-Epi 1:100,000 20 mL Inj ONE (12:45)
[2017-07-26 13:04] LABS: BASOPHILS % (AUTO) 0.1 % (0-3); MONOCYTES % (AUTO) 10.2 % (4-12); Mean Corpuscular Hemoglobin 27.1 pg (27.0-35.0); Mean Corpuscular Volume 84.8 fL (81-100); NEUTROPHILS % (AUTO) 78.7 % (40-74); Platelet Count 189 bil/L (150-400)
[2017-07-26 13:24] LABS: Magnesium 2.1 mg/dL (1.6-2.6)
[2017-07-26 13:48] LABS: TROPONIN T 0.034 ug/L (0.0-0.011)
[2017-07-26] MEDS ORDERED: APIX5TAB PO (14:05)
[2017-07-26] MEDS ORDERED: Alum-Mag Hydrox-Simeth 30 mL Suspension PO PRN ×2 (14:05→15:50)
[2017-07-26] MEDS ORDERED: Ondansetron 2 mg/mL 2 mL Inj IVPUSH PRN ×2 (14:05→15:50)
[2017-07-26 14:26] LABS: ERYTHROCYTE SEDIMENTATION RATE 77 mm/hr (0-30)
[2017-07-26] MEDS ORDERED: Polyethylene Glycol (PEG) 17 Gm Powder PO PRN (15:50)
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
[2017-07-26] MEDS ORDERED: Glucose 40% Oral Gel 15 Gm Tube PO PRN (16:35)
--- NOTE | 2017-07-26 16:46 | PCM.ADCARE ---
Advance Care Planning Note Plan: Date: 07/26/2017 Diagnosis: Polymyalgia Acute on chronic systolic CHF Chronic renal failure Hypertension Diabetes Hyperlipidemia History of DVT DJD of the lower spine Purpose of encounter: Goals of care Parties in attendance: The patient, his (Zeina), Dr. Salcedo Decisional capacity: Good Plan: The patient and his are aware of the current diagnosis and would like to continue to be full code. The patient understands that this means for chest compressions, intubation, pressors, and all measures involved with CPR. CODE STATUS: Full code Time spent with advanced care planning: Greater than 16 minutes Jazmyn Salcedo DO Jul 26, 2017 16:46
--- NOTE | 2017-07-26 18:06 | PCM.PHAPRO ---
Progress Date of Service: Jul 26, 2017 Polyarthralgia, generalized weakness, and left upper shoulder many pain Vancomycin Management per Pharmacy: Indication: Osteomyelitis Goal Vanco Trough: 15-20 mg/dL Age: 77 yo male Labs: WBC: 10.1 ESR: 77 Procalcitonin: 0.66 SrCr: 2.57 mg/dL (Baseline ~2.1 mg/dL) Est CrCl: ~25 mL/min Nephrotoxic Drugs: Lasix 40 mg IV BID and Zosyn IV Vitals: All stable (no fevers or elevation in HR) Recommendation: Load: Vancomycin 1750 mg IV x 1 given in ED Maintenance: Vancomycin 750 mg IV q24h Vanco Trough: Draw on 07/29/17 @ 0730 prior to 3rd dose (early due to pt age and poor renal function) Pharmacy to continue to monitor and adjust dose as needed. Thank You, Anna Esquivel, Pharm D. Anna Esquivel Jul 26, 2017 18:06
[2017-07-26] MEDS: Furosemide 10 mg/mL 4 mL Inj IVPUSH SCH (18:07)
[2017-07-26] MEDS: Insulin LISPRO 300 Unit/3 mL Inj SUBQ SCH ×2 (18:08→22:00)
--- NOTE | 2017-07-26 18:44 | CONS ---
[address] [address] CONSULTATION REPORT PATIENT: ITZEL HARRISON : 1940 MR#: [id number] ADMIT: 07/26/2017 JOB ID: [id number] DATE OF SERVICE: 07/26/2017 INFECTIOUS DISEASE CONSULTATION: REASON FOR CONSULTATION: Possible osteomyelitis left hand plus symmetrical polyarthritis bilateral lower extremities. HISTORY OF PRESENT ILLNESS: This is an extremely complex case of a gentleman who has underlying multiple medical problems including cardiomyopathy secondary to ischemia from coronary artery disease as well as diabetes. He also has chronic renal insufficiency as well as degenerative joint disease. In any event, the patient was in his usual state of compensated health until he reports sometime earlier this summer when he developed some swelling of the lower extremities which seemed to improve with diuretics. On June 10 he underwent placement of a pacer in his left upper chest. This was initially uncomplicated, but within a couple of weeks postop he developed significant swelling of his left upper extremity. An ultrasound showed that he had a DVT and for that reason he was started on Eliquis oral anticoagulation. He also had erythema and tenderness, especially in the wrist and hand area, and there was concern about possible infection. He was treated initially with some prophylactic doxycycline after his pacer placement; but, once it was thought there could be significant infection there, he was started on a very prolonged course of Bactrim. He reports that on the Bactrim there seemed to be some improvement in the swelling and tenderness in his left hand but it never completely went away and he has had reduced function and pain, especially along the left 2nd knuckle. Recently he was reevaluated as an outpatient and an x-ray of the hand showed possible osteomyelitis of the second metacarpal head area. A bone scan was also done which showed what was thought to be osteomyelitis in that area and osteoarthritis was seen in multiple other joints. In addition to the swelling in the left upper extremity, which may represent osteomyelitis and has not resolved at this point, the patient also has developed a much more worrisome problem which is the rapid development of severe arthritis in his bilateral lower extremities. He reports that just within the past few days he has developed really symmetrical impressive swelling, redness, and tenderness, in his lower extremities. This is so severe that he literally cannot walk and, in fact, cannot bear weight and get to the bathroom or stand at all because of this symmetrical knee and ankle pain. He notes that his ankles and knees, all four joints, are swollen, red, and tender. He has never had this before. He denies any history of crystalline gout disease such as gout or pseudogout, or any history of lupus or rheumatoid arthritis. He further states he has not traveled anywhere nor has he had contact with sick persons, though he does have contact with an 8-year-old grandchild. In association with this rapidly progressive polyarthritis he has been profoundly weak and lightheaded at times, and in fact has fallen because of the weakness and pain in the joints. He has noted some subjective chills, but no fevers or sweats. He does not have any significant headache, sore throat, cough, shortness of breath, GI or symptoms in association with this polyarthritis and persistent pain in his left wrist. PAST MEDICAL HISTORY: 1. Organic heart disease: a. Ischemic cardiomyopathy, with ejection fraction only 25%. b. Coronary artery disease status post CABG. c. Left bundle branch block. d. Status post pacer June 10, 2017. 2. Diabetes mellitus. 3. Hypertension. 4. DVT left upper extremity following pacer. 5. Questionable history of COPD. 6. Possible osteomyelitis, left hand. 7. Symmetrical lower extremity polyarthritis, onset about July 22. SOCIAL HISTORY: The patient is a lifelong nonsmoker who occasionally drinks a beer but really insignificant. 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 FAMILY HISTORY: Negative for tuberculosis, rheumatoid arthritis, or lupus in any first- or second-degree relatives. REVIEW OF SYSTEMS: Was done. The patient states he has no headache or acute visual change. No sore throat or trouble swallowing. No stiff neck. He has no significant cough, nor does he have any chest pain. He has had over the past week or two his says occasional cough with some minimal sputum production but that seems to have resolved. No nausea or vomiting. No dysuria, urgency, or frequency. The arthritis in the joints has been described above. There is no skin rash, except that in association with his left wrist, which is chronically swollen and tender as is his dorsal left hand; that goes back to June of this year. He has no acute neurologic complaints though apparently has some degree of underlying diabetic neuropathy. The remainder of his review of systems is negative. PHYSICAL EXAMINATION: Reveals a friendly and alert elderly gentleman in no acute distress. He appears about his stated age of 77. He is afebrile here, just having been evaluated in the ED. Temp 37.2, 75 pulse, respiratory rate 15, blood pressure 125/72. He is saturating well on room air. His mental status is sharp. He has no temporal wasting or evidence of head trauma. Eyes without conjunctivitis or conjunctival hemorrhage. His nose is normal. Oral cavity with just scattered lower teeth left, and these teeth are in very poor repair. No obvious gingivitis. No pharyngitis. His neck is supple, without adenopathy. Lungs reasonably clear bilaterally. Cardiac tones with a regular rate and rhythm. The pacer in the left upper chest is soft and nontender. There is no hepatosplenomegaly, no ascites. No suprapubic fullness and he has no Mike catheter at this time. His hips seem to have reasonable range of motion and his elbows and shoulders certainly have normal range of motion, but his ankles are swollen and somewhat tender to palpation, with obvious effusions, but not especially tender. His ankles on the other hand, and especially the right ankle, are both swollen, erythematous, and warm. The right ankle approaches hot to the touch, in fact it is so severely involved he basically cannot move his knees or his ankles secondary to severe pain and swelling. There is minimal peripheral edema and I think most of what we are seeing around the ankles is actually arthritis or jen-joint inflammation. There is reasonable blood flow, it would appear, to his extremities as they are certainly warm and in fact hot and there is good capillary refill. Neurologically the patient is difficult to assess because his legs are too painful to move but he can certainly move all four extremities. LABORATORIES: Include white count 10,000, sed rate 77, platelets 189. His creatinine is 2.57, which apparently is near his baseline. Calculated creatinine clearance is only about 25. LFTs normal. Procalcitonin 0.66, which is certainly indeterminate given his renal dysfunction. Blood cultures negative at this time. Multiple sets are pending at my request as I have discussed this case numerous times through the day with the ER staff. IMAGING: Chest x-ray done today shows postop changes related to his bypass but no acute infiltrates or other abnormalities. IMPRESSION: This is an extremely mysterious case, which I discussed in detail with Dr. James Schwartz of Rheumatology this afternoon to try and get some ideas. It almost seems as if there are two things going on with this patient, one of which may be osteomyelitis involving the area of the left dorsal hand around the 2nd metacarpophalangeal joint. This diagnosis is suggested by the plain film of the left hand as well as the MRI scan. I am a little bit skeptical of this in that the patient has been treated for almost a month, it sounds like, with oral Bactrim and there has been little improvement and it may in fact have gotten worse. We certainly have no idea what the microbiology might be of this but it does seem to have followed a DVT. I wonder if this could represent a complex regional pain syndrome involving the left upper extremity rather than osteomyelitis. Even more mysterious is the four joint involvement of both knees and both ankles. This has a broad differential diagnosis. I have considered a number of things including serum sickness due to the Bactrim he has been receiving, acute rheumatic fever, septic joints with seeding in a diabetic due to Staph endocarditis, calcium pyrophosphate deposition (CPPD) or gout, parvovirus infection, hepatitis B or hepatitis C with reactive polyarthritis, lupus, or rheumatoid arthritis, or even a vasculitis. His findings are certainly dramatic and rapidly evolving. It is still unclear what bacteria if any may be involved in this process. RECOMMENDATIONS: After great deal of reading, discussion, and thinking about this case during the course of the day, I have the following recommendations: 1. Nasal MRSA screen should be done. I note that the patient has already been started on vancomycin and Zosyn, but if this nasal MRSA screen is negative I would immediately stop the vancomycin as I think this is unlikely to be a MRSA left wrist osteomyelitis, and I partly base that impression on the fact that he has been on antibiotics for over a month. 2. I would consider discontinuing the Zosyn, though I am not completely convinced of this maneuver. The patient has been treated for a month for a presumptive evolving infection involving his left upper extremity and we actually have no idea what the microbiology is. It may be reasonable to stop and observe a bit in this nontoxic patient in hopes of getting a later clean biopsy or aspirate that will guide our therapy. 3. I would strongly consider a MRI scan of the left upper extremity, particularly the hand and wrist, to see whether we can confirm a diagnosis of osteomyelitis. If there is evidence of significant osteo, I would consider consulting Hand Surgery to see if a debridement and culture might be indicated to give us some better handle on the possible microbiology here. 4. Tapping of one of the knees or one of the ankles I think would be very useful in terms of ruling out crystalline disease or polymicrobial bacterial arthritis. Fluid from the knee or ankle should be sent for crystal studies as well as Gram stain and cultures. 5. We await our pending blood cultures. 6. TEO and rheumatoid factor have been ordered. 7. I have also ordered hep B and hep C serologies, as well as parvovirus serologies. 8. ASO titer has been ordered. 9. I have ordered films of both knees and both ankles in hopes of documenting a diagnosis of CPPD. 10. Uric acid will be ordered. 11. My overall sense of this case is that the bilateral symmetrical lower extremity arthritis is likely not infectious and may constitute some autoimmune or serum sickness like illness. It is also possible that this constitutes some form of crystalline induced arthritis. What is going on in his left wrist and hand is very difficult to understand at this point, and I think it may not be unreasonable to stop at least the vancomycin, and perhaps the vancomycin and the Zosyn, while we collect more data and try and sort out what is going on in this complicated patient. Thank you very much for allowing me to see this patient in consult.
--- NOTE | 2017-07-26 18:45 | NUR ---
Admit Pt admitted to floor at 1720 with . Report provided from Dee Dee Pitt RN. VSS. Denies CP/SOB. Pain to BLE 07/21 but pt not stating immediate need for pain meds. Obtained order for tele and placed. Oriented to room. Plan on whiteboard. TM
--- NOTE | 2017-07-26 18:47 | NUR ---
Troponin notified at 1840 that 2nd troponin elevated at 0.038. Pt continue to deny CP/SOB. Tele stable and vpaced in 80s. conversant and a&ox4. dinner at bedside. MD to review. WCBRENDON pt.
[2017-07-26] MEDS ORDERED: Albuterol 2.5 mg/3 mL Inhalation Solution NEB PRN (20:00)
--- NOTE | 2017-07-26 20:18 | DRSVH ---
PROCEDURE: X-RAY RIGHT ANKLE, MINIMUM THREE VIEWS ([id number]) INDICATIONS: FULMINANT B ARTHRITIS-?CPPD TECHNIQUE: 3 views of the ankle were acquired. COMPARISON: None. FINDINGS: Bones: No fractures or dislocations. Ankle mortise is normally aligned. No suspicious bony lesions . Soft tissues: No tibiotalar joint effusion. Achilles tendon appears normal. Diffuse soft tissue sw elling is present around the ankle. There is prominent atherosclerotic calcification. IMPRESSION: No acute bony abnormality. Diffuse soft tissue swelling is present. Dictated by: Lyle Velásquez M.D. on 07/26/2017 at 20:15 Approved by: Lyle Velásquez M.D. on 07/26/2017 at 20:16
--- NOTE | 2017-07-26 20:19 | DRSVH ---
PROCEDURE: X-RAY LEFT KNEE, ONE OR TWO VIEWS ([id number]) INDICATIONS: FULMINANT B ARTHRITIS-?CPPD TECHNIQUE: 2 views of the knee were acquired. COMPARISON: None. FINDINGS: Bones: No fractures or dislocations. No suspicious bony lesions. Minimal osteoarthritic change is seen. Soft tissues: No joint effusion. No suspicious soft tissue calcifications. No chondrocalcinosis is seen. IMPRESSION: Cause of pain and stiffness is not appreciated. Minimal arthritic change. No chondrocalci nosis. Dictated by: Lyle Velásquez M.D. on 07/26/2017 at 20:16 Approved by: Lyle Velásquez M.D. on 07/26/2017 at 20:17
--- NOTE | 2017-07-26 20:57 | DRSVH ---
PROCEDURE: X-RAY RIGHT KNEE, ONE OR TWO VIEWS ([id number]) INDICATIONS: fulminant B arthritis-?CPPD TECHNIQUE: 2 views of the knee were acquired. COMPARISON: None. FINDINGS: Bones: No fractures or dislocations. No suspicious bony lesions. Soft tissues: There is thought to be a moderate joint effusion. No suspicious soft tissue calcificat ions. There are vascular clips along the medial aspect of the knee suggesting previous venous vascul ar surgery. There is prominent as do the patellar tendon and indistinctness along its posterior aspec t suggesting some edema in the infrapatellar fat pad. IMPRESSION: Edema in the region of the patellar tendon and infrapatellar fat pad. Moderate joint effusion. Other than mild degenerative change no bony abnormality is seen. Dictated by: Lyle Velásqeuz M.D. on 07/26/2017 at 20:54 Approved by: Lyle Velásquez M.D. on 07/26/2017 at 20:55
[2017-07-26 21:02] LABS: APPEARANCE,URINE CLEAR (CLEAR,HAZY); COLOR,URINE STRAW (YELLOW); OCCULT BLOOD,URINE SMALL (NEGATIVE); UROBILINOGEN,URINE NORMAL (NORMAL)
[2017-07-26] MEDS ORDERED: 0.9% Sodium Chloride 100 ML ONE (21:17)
[2017-07-26] MEDS: Piperacillin-Tazo 3.375 Gm Inj 3.375 GM in Dextrose 5% Minibag Plus 50 ML IV SCH (21:19)
--- NOTE | 2017-07-26 21:21 | DRSVH ---
PROCEDURE: X-RAY LEFT ANKLE, MINIMUM THREE VIEWS ([id number]) INDICATIONS: fulminant B arthritis-?CPPD TECHNIQUE: 3 views of the ankle were acquired. COMPARISON: None. FINDINGS: Bones: No fractures or dislocations. Ankle mortise is normally aligned. No suspicious bony lesions . Soft tissues: No tibiotalar joint effusion. Achilles tendon appears normal. Diffuse soft tissue sw elling around the ankle joint is seen. Atherosclerotic calcifications are present. IMPRESSION: Diffuse soft tissue swelling. No joint effusion or bone destructive changes seen. Dictated by: Lyle Velásquez M.D. on 07/26/2017 at 21:18 Approved by: Lyle Velásquez M.D. on 07/26/2017 at 21:19
[2017-07-27] VITALS (9 sets, daily range): BP systolic 142–160; BP diastolic 62–79; PULSE 70–93; RESP 14–18; O2SAT 96–99
--- NOTE | 2017-07-27 06:42 | NUR ---
Shift note Copious amount of urine out, slept well through did wake with elevated knee pain, Tramadol and Tylenol gvn
[2017-07-27 07:15] LABS: BASOPHILS % (AUTO) 0.3 % (0-3); EOSINOPHILS % (AUTO) 1.5 % (0-5); MONOCYTES % (AUTO) 12.4 % (4-12); Mean Corpuscular Hemoglobin 27.5 pg (27.0-35.0); Mean Corpuscular Volume 85.1 fL (81-100); NEUTROPHILS % (AUTO) 74.1 % (40-74); Platelet Count 192 bil/L (150-400)
[2017-07-27] MEDS: Piperacillin-Tazo 3.375 Gm Inj 3.375 GM in Dextrose 5% Minibag Plus 50 ML IV SCH (07:55)
[2017-07-27] MEDS: Insulin LISPRO 300 Unit/3 mL Inj SUBQ SCH ×4 (07:59→22:00)
[2017-07-27] MEDS: Furosemide 10 mg/mL 4 mL Inj IVPUSH SCH (08:01)
[2017-07-27] MEDS ORDERED: Vancomycin Inj 750 MG in 0.9% Sodium Chloride 250 ML IV SCH (08:30)
[2017-07-27] MEDS ORDERED: Vancomycin Dose per Pharmacist XX SCH (08:30)
--- NOTE | 2017-07-27 09:09 | NUR ---
Troponin AM team notified of 07/26 troponins. Pt had no chest pain or events overnight/this am with stable tele and VS. No SOB. To continue current treatments and WCTM. Pt eatinf and drinking well this am. Continues to have BLE discomfort but controlling with prn meds.
--- NOTE | 2017-07-27 13:24 | DRSVH ---
[facility] [address] [place] [address] Echocardiogram Report Name: ITZEL HARRISON LStudy Date: 07/27/2017 Height: 70 in Hospital Exam Location: [facility] Weight: 186 lb Gender: Male BSA: 2.0 m2 : 1940 Age: 77 yrs BP: 153/62 mmHg Reason For Study: ELEVATED TROPONIN Ordering Physician: [facility] Performed By: Lizett Santos [facility] Interpretation Summary Left ventricular systolic function is moderately reduced with the ejection fraction visually estimated to be 35-40% with a marked dyssynchronous contraction pattern due to the paced rhythm and moderate global hypokinesis that is worse in the inferior and posterior segments, unchanged compared to the previous study, but global contractility has improved compared to the previous study and left ventricular function is moderately improved. There is mild concentric left ventricular hypertrophy with moderate proximal septal thickening. The right ventricle is normal size and systolic function is mildly reduced but appears significantly improved compared to the previous study. Pulmonary artery pressures cannot be estimated because of the lack of a measurable TR jet velocity. The left atrium is severely dilated but unchanged in size since the prior echo exam. The right atrium is normal in size and has mildly decreased in size since the prior echo exam. There is mild mitral regurgitation that grossly appears unchanged compared to the previous study and there is no other obvious valvular heart disease. Procedure: A two-dimensional transthoracic echocardiogram with color flow and Doppler was performed in limited views only. The study quality was technically adequate. Comparison is made with the echocardiogram of 04/09/17. The patient has a paced rhythm. Left Ventricle: The left ventricle is normal in size. There is mild concentric left ventricular hypertrophy. There is moderate proximal septal thickening noted. Left ventricular systolic function is moderately reduced. The ejection fraction is estimated to be 35-40%. Compared to the prior exam, left ventricular function is moderately improved. There is a marked dyssynchronous contraction pattern due to the paced rhythm. There is moderate global hypokinesis of the left ventricle. This is improved compared to the previous study. This is worse in the inferior and posterior segments. This is unchanged compared to the previous study. Diastolic function could not be accurately assessed due to paced rhythm. Right Ventricle: The right ventricle is normal size. There is a pacemaker lead in the right ventricle. Right ventricular systolic function is mildly reduced. This is significantly improved compared to the previous study. Atria: The left atrium is severely dilated. The left atrium has remained unchanged in size since the prior echo exam. The right atrium is normal in size. The right atrium has mildly decreased in size since the prior echo exam. There is a catheter/pacemaker lead seen in the right atrium. The interatrial septum is intact with no evidence for an atrial septal defect. Mitral Valve: There is mild to moderate mitral annular calcification. There is mild mitral regurgitation. This is unchanged compared to the previous study. Aortic Valve: The aortic valve is trileaflet. The aortic valve is mildly calcified. Leaflet mobility is mildly reduced. This is unchanged compared to the previous study. Tricuspid Valve: The tricuspid valve is normal. There is trace tricuspid regurgitation. Pulmonary artery pressures cannot be estimated because of the lack of a measurable TR jet velocity. Pulmonic Valve: There is no other significant valvular heart disease. Pericardium/ Pleura There is no pericardial effusion. There is no pleural effusion. MMode/2D Measurements & Calculations LVIDd: 5.2 cm LVIDs: 5.2 cm LA A2 area: 28.4 cm FS: -1.0 % LA A4 area: 30.5 cm IVSd: 1.4 cm LA length (vol): 6.2 cm LVPWd: 1.4 cm LA vol: 117.8 ml LA vol index: 58.2 ml/m IVC diam: 1.9 cm RA long axis: 5.4 cm EDV(MOD-sp2): 227.9 ml RA area: 17.8 cm ESV(MOD-sp2): 161.9 ml RA vol: 49.7 ml EF(MOD-sp2): 29.0 % RA : 24.6 ml/m2 LV herzog. diameter/BSA (cm/m^2): 2.5 LV sys. diameter/BSA (cm/m^2): 2.6 RVD1 (basal): 3.9 cm RVD2 (mid): 2.8 cm Reading Physician:01:24 PM
--- NOTE | 2017-07-27 13:35 | NUR ---
Tele/imaging/lab notified via cook page pt had 9 beats of vtach at about 1315. asymptomatic and VSS. also notified MD that US has not seen pt, may not get to today unless reordered as stat. repeat troponin slightly down at 0.034 and pt continues to deny chest pain or SOB. WCTM.
--- NOTE | 2017-07-27 16:12 | PCM.PNMED ---
Subjective Date of Service Jul 27, 2017 Subjective Continues to have bilateral knee swelling. Unable to participate in physical therapy due to knee pain and swelling. Afebrile. Exam Vital Signs Vital Sign - Last Date Time Temp Pulse Resp B/P Pulse Ox O2 Delivery O2 Flow Rate FiO2 07/27/17 14:52 74 16 97 Room Air 07/27/17 13:30 142/73 07/27/17 10:22 36.7 Intake and Output 07/26/17 07/26/17 07/27/17 Cumulative From/Thru 14:59 22:59 06:59 07/26/17 10:52 - 07/27/17 06:01 Intake Total 150 ml 472 ml 622 ml Output Total 2680 ml 2680 ml Balance 150 ml -2208 ml -2058 ml Intake Oral 150 ml 400 ml 550 ml IV Total 72 ml 72 ml Output Urine Total 2680 ml 2680 ml # Voids 1 1 Exam GEN: Patient was awake, alert, responding appropriately to questions HEENT: Pupils equal round and reactive to light, extraocular eye muscles intact , Neck soft supple, trachea midline, nomocephalic/atraumatic CV: +S1/S2, regular rate and rhythm, no murmur auscultated Respiratory: CTAB, no wheezes, rales, rhonchi GI: +bowel sounds x4, soft, compressible, nontender to palpation EXT: Left upper extremity swelling, bilateral increased in size metacarpals, +2 nonpitting edema bilaterally. Bilateral knee swelling with effusion, slightly tender. Neuro: Cranial nerves II-XII grossly intact Psych: mood and affect were appropriate IVs and Medications Medications Reviewed: Medications were reviewed in detail Lab and Diagnostics Result Diagram: 07/27/17 0647 07/27/17 0647 Cardiac Echo Impressions Left ventricular systolic function is moderately reduced with the ejection fraction visually estimated to be 35-40% with a marked dyssynchronous contraction pattern due to the paced rhythm and moderate global hypokinesis that is worse in the inferior and posterior segments, unchanged compared to the previous study, but global contractility has improved compared to the previous study and left ventricular function is moderately improved. There is mild concentric left ventricular hypertrophy with moderate proximal septal thickening. The right ventricle is normal size and systolic function is mildly reduced but appears significantly improved compared to the previous study. Pulmonary artery pressures cannot be estimated because of the lack of a measurable TR jet velocity. The left atrium is severely dilated but unchanged in size since the prior echo exam. The right atrium is normal in size and has mildly decreased in size since the prior echo exam. There is mild mitral regurgitation that grossly appears unchanged compared to the previous study and there is no other obvious valvular heart disease. Assessment & Plan 77-year-old male with past medical history of CHF, hypertension, diabetes type II, pacemaker with defibrillator, hyperlipidemia, chronic renal failure with a baseline creatinine of 2.5, left upper extremity DVT, and DJD of the lumbar spine presents to the emergency room with complaint of polyarthralgia, left arm swelling and generalized weakness. #Polyarthritis with generalized weakness and multiple extremity swelling, present on admission, active -unclear etiology at this point -Bilateral knee swelling probably due to serum sickness from Bactrim - Initially started IV antibiotics Zosyn and vancomycin. narbrad negative. Patient nontoxic appearing. No clinical evidence of infection so far. Discontinued vancomycin and Zosyn - Consult infectious disease (Dr. Bueno) -Consider obtaining a fluid sample from the right knee for culture tomorrow will hold patient's Eliquis. - Ultrasound of the lower extremities bilaterally pending - PT/OT ordered #Suspected Osteomyelitis of the left hand, present on admission, active -discontinue vancomycin and Zosyn until more data is available. We will get MRI. We will consult orthopedics for biopsy if MRI is abnormal -Discussed case with infectious disease Dr. Bueno -PT/OT ordered # chronic systolic CHF, present on admission, active -Continue carvedilol 6.25 mg twice a day -Received Lasix IV 40 mEq twice a day for suspected acute exacerbation. Resumed home torsemide 20 mg by mouth twice a day -Patient's last echo was 04/09/2017 showing an EF of 25-30% with significant dyssynchronous contraction patterns, severe global hypokinesis slightly worse in the inferior wall, left ventricular wall thickness, right ventricle systolic function mildly reduced -echo repeated today with improved systolic function EF 35-40% - Continue to monitor #History of recent DVT in the left upper extremity -Hold Eliquis. until it is decided if the patient's left knee will be tapped or not - Once decision is made the patient may be restarted on Eliquis. #Chronic renal failure, present on admission, stable -Patient's creatinine is 2.5 currently at its baseline - resume lisinopril #Hypertension, present on admission, stable - Currently stable with blood pressure 122/66 -Continue carvedilol 6.25 mg by mouth twice a day -resume lisinopril 2.5 mg -Continue to monitor #Diabetes type II, present on admission currently stable -Hemoglobin A1c pending -Diabetic diet -Continue glimepiride 1 mg daily -Sliding scale low dose correctional -Follow up morning blood sugar -Continue monitor Hyperlipidemia, present on admission, stable -Follow up lipid panel -Continue simvastatin DVT prophylaxis: We will hold for now until it is determined whether or not the patient will have any type of procedure in the morning after patient's procedures are completed the patient may restart home dose of Eliquis. 5 mg twice a day Code Status: Full code Disposition: Pending clinical course Wilson Charles MD Jul 27, 2017 16:12 twice a day Code Status: Full code Disposition: Due to the nature of the patient's current diagnosis anticipated stay is greater than 2 midnight Wilson Charles MD Jul 27, 2017 16:12
--- NOTE | 2017-07-27 22:04 | NUR ---
Knee aspiration Bilat knee aspiration done @ bedside by Dr. Marie cx sent to lab, and some excess fluid drained L>R.
[2017-07-27 23:42] LABS: BFWBC 17750 /mm3
[2017-07-27 23:43] LABS: MONOCYTES,BODY FLUID 3 %; OTHER CELLS,BODY FLUID 0
[2017-07-27 23:44] LABS: BFWBC 9500 /mm3; MONOCYTES,BODY FLUID 1 %; OTHER CELLS,BODY FLUID 0
[2017-07-28] VITALS (9 sets, daily range): BP systolic 122–169; BP diastolic 66–88; PULSE 71–83; RESP 16–18; O2SAT 96–98
--- NOTE | 2017-07-28 00:25 | OP ---
[address] [address] OPERATIVE REPORT PATIENT: ITZEL HARRISON : 1940 MR#: [id number] ADMIT: 07/26/2017 JOB ID: [id number] DATE OF SURGERY: PREOPERATIVE DIAGNOSIS(ES): 1. Bilateral knee joint effusions. 2. Painful arthropathy. POSTOPERATIVE DIAGNOSIS(ES): 1. Bilateral knee joint effusions. 2. Painful arthropathy. OPERATION: Sterile aspiration of right and left knees, CPT code 38781, x2. SURGEON: Shaggy Marie MD ANESTHESIA: 1% plain lidocaine. COMPLICATIONS: None. SPECIMEN SENT: Synovial fluid sent for aerobic, anaerobic cultures, gram stain, cell count with differential and crystal analysis. INDICATIONS: This 77-year-old male was admitted to the hospital with painful knees and multiple arthralgias including pain in the right hand, both knees and both ankles. Dr. Bueno had requested his knees to be aspirated. The patient has a very long complex history, with having developed arthralgias and multiple areas of pain after he underwent pacemaker and defibrillator placement in May 2017. The patient has been having multiple arthralgias. DESCRIPTION OF PROCEDURE: Each knee was sterilely prepped with ChloraPrep. Skin was infiltrated with 1% plain lidocaine. The right knee appeared to have some fluid but it was mostly boggy synovium. I aspirated for about 5 mL of cloudy yellow synovial fluid, slightly blood-tinged. This was sent for culture, sensitivity and crystal analysis as well as cell count with differential. Left knee was sterilely prepped with ChloraPrep and aspirated for mL of cloudy yellow fluid. There was no obvious purulent material. This left knee fluid was also sent for culture and sensitivity, cell count with differential and crystal analysis. Specimens were sent to pathology. The patient tolerated the procedure well. No complications.
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
[2017-07-28] MEDS: Insulin LISPRO 300 Unit/3 mL Inj SUBQ SCH ×4 (07:40→22:00)
--- NOTE | 2017-07-28 10:46 | NUR ---
Morning Rounds Staffed patient's case with Dr. Charles and social work. MD wants patient to work with PT after Colchicine has been started, so later this afternoon. Made MD aware that patient is questioning if he will restart Eliquis today, MD stated he would place the order to restart. Possible discharge tomorrow. Social work to see patient this morning to assess any needs.
--- NOTE | 2017-07-28 12:12 | NUR ---
Social Work- Initial Assessment/Multidisciplinary Rounds Data: See Initial Assessment and Advance Directive Intervention for additional information. Pt is a 77 year old male admitted for polyarthritis. Pt's insurance is [employer]. Pt's PCP is Dwayne Gutierrez DO. Pt's readmit risk score is 2/8 low risk. Pt's NOK and designated sheet music salesperson is Zeina Martinez, . Pt discussed in multidisciplinary rounds, pt has gout which is impacting his mobility. Pt will be treated for this and d/c when his mobility improves. PT to evaluate pt prior to d/c. SW met with pt and his Zeina at bedside to discuss discharge plan, SW role explained. Pt alert and oriented x3. Pt resides in [place] in a mobile home with six steps to enter with his . Pt is independent with ADLs and self-care. Pt has no HH or SNF history, no LTC or VA benefits. Pt uses a cane at baseline, continues to drive. Pt describes himself as low income, discussed options for assistance related to this. Discussed meals on wheels, [facility] [employer], [facility], and [facility]. Pt and agreeable to this and are planning on looking into things. Provided financial foundations associate application for hospital bills not covered by insurance. Explained process. Pt and agreeable. Pt is likely to progress to PLOF once his gout is controlled. Pt's to transport home via POV at this time. SW will continue to follow for any additional needs, SNF vs. HH. No orders have been received at this time. Assessment: Pt who is independent at baseline with ADLs and self-care Plan: Pt is likely to progress to PLOF once his gout is controlled. Pt's to transport home via POV at this time. SW will continue to follow for any additional needs, SNF vs. HH. No orders have been received at this time. SHIRA Downing Addendum: 07/28/17 at 1223 by CARISSA CHASE SS Amended: Links added.
--- NOTE | 2017-07-28 14:59 | NUR ---
Duct Layer Helper Contacted Dr. Charles with the following cook page: audiovisual technician called and stated patient just had a 7 beat run of v-tach, HR 150. Please advise. Thank you. Ailyn [facility] ext [phone]
[2017-07-28 15:40] LABS: BASOPHILS % (AUTO) 0.3 % (0-3); MONOCYTES % (AUTO) 12.3 % (4-12); Mean Corpuscular Hemoglobin 27.2 pg (27.0-35.0); Mean Corpuscular Volume 85.9 fL (81-100); NEUTROPHILS % (AUTO) 69.9 % (40-74); Platelet Count 255 bil/L (150-400)
--- NOTE | 2017-07-28 16:04 | PCM.PNMED ---
Subjective Date of Service Jul 28, 2017 Subjective Continues to bilateral knee pain and swelling.both knees tapped last night by . At least one of the aspirate is positive for gout crystals. Started colchicine today. Antibiotics remain discontinued. Resume eliquis Exam Vital Signs Vital Sign - Last Date Time Temp Pulse Resp B/P Pulse Ox O2 Delivery O2 Flow Rate FiO2 07/28/17 15:15 36.8 71 16 155/86 98 Room Air Intake and Output 07/27/17 07/27/17 07/28/17 Cumulative From/Thru 14:59 22:59 06:59 07/26/17 10:52 - 07/28/17 06:22 Intake Total 760 ml 720 ml 2102 ml Output Total 1700 ml 1250 ml 5630 ml Balance -940 ml -530 ml -3528 ml Intake Oral 760 ml 720 ml 2030 ml IV Total 72 ml Output Urine Total 1700 ml 1250 ml 5630 ml # Voids 1 Exam GEN: Patient was awake, alert, responding appropriately to questions HEENT: Pupils equal round and reactive to light, extraocular eye muscles intact , Neck soft supple, trachea midline, nomocephalic/atraumatic CV: +S1/S2, regular rate and rhythm, no murmur auscultated Respiratory: CTAB, no wheezes, rales, rhonchi GI: +bowel sounds x4, soft, compressible, nontender to palpation EXT: Left upper extremity swelling, bilateral increased in size metacarpals, +2 nonpitting edema bilaterally. Bilateral knee swelling with effusion, slightly tender. Neuro: Cranial nerves II-XII grossly intact Psych: mood and affect were appropriate IVs and Medications Medications Reviewed: Medications were reviewed in detail Lab and Diagnostics Result Diagram: 07/28/17 1528 07/27/17 0647 Cardiac Echo Impressions Left ventricular systolic function is moderately reduced with the ejection fraction visually estimated to be 35-40% with a marked dyssynchronous contraction pattern due to the paced rhythm and moderate global hypokinesis that is worse in the inferior and posterior segments, unchanged compared to the previous study, but global contractility has improved compared to the previous study and left ventricular function is moderately improved. There is mild concentric left ventricular hypertrophy with moderate proximal septal thickening. The right ventricle is normal size and systolic function is mildly reduced but appears significantly improved compared to the previous study. Pulmonary artery pressures cannot be estimated because of the lack of a measurable TR jet velocity. The left atrium is severely dilated but unchanged in size since the prior echo exam. The right atrium is normal in size and has mildly decreased in size since the prior echo exam. There is mild mitral regurgitation that grossly appears unchanged compared to the previous study and there is no other obvious valvular heart disease. Assessment & Plan 77-year-old male with past medical history of CHF, hypertension, diabetes type II, pacemaker with defibrillator, hyperlipidemia, chronic renal failure with a baseline creatinine of 2.5, left upper extremity DVT, and DJD of the lumbar spine presents to the emergency room with complaint of polyarthralgia, left arm swelling and generalized weakness. #Polyarthritis with generalized weakness and multiple extremity swelling, present on admission, active -Likely Due to gouty arthritis -both knees tapped last night by . At least one of the two aspirate is positive for gout crystals. Polymorphonuclear leukocytes predominant in aspirate.wbc 9500 lt knee and 17,000. Culture pending. Infection unlikely. Antibiotics remained discontinued -Gave colchicine 1.2 mg once and then 0.6 mg after 1 hr. Indocid avoided due to advanced CKD.will consider prednisone if no response by tomorrow - Initially started IV antibiotics Zosyn and vancomycin.MRS nares negative. Patient nontoxic appearing. No clinical evidence of infection so far. Discontinued vancomycin and Zosyn - Consult infectious disease (Dr. Bueno) -resumed home Eliquis. - Ultrasound of the lower extremities bilaterally pending - PT/OT ordered #Suspected Osteomyelitis of the left hand, present on admission, active -discontinue vancomycin and Zosyn until more data is available. We will get MRI. We will consult orthopedics for biopsy if MRI is abnormal -Discussed case with infectious disease Dr. Bueno -PT/OT ordered # chronic systolic CHF, present on admission, active -Continue carvedilol 6.25 mg twice a day -Received Lasix IV 40 mEq twice a day for suspected acute exacerbation. Resumed home torsemide 20 mg by mouth twice a day -Patient's last echo was 04/09/2017 showing an EF of 25-30% with significant dyssynchronous contraction patterns, severe global hypokinesis slightly worse in the inferior wall, left ventricular wall thickness, right ventricle systolic function mildly reduced -echo repeated today with improved systolic function EF 35-40% - Continue to monitor #History of recent DVT in the left upper extremity - restarted on Eliquis. #Chronic renal failure, present on admission, stable -Patient's creatinine is 2.5 currently at its baseline - resume lisinopril #Hypertension, present on admission, stable - Currently stable with blood pressure 122/66 -Continue carvedilol 6.25 mg by mouth twice a day -resume lisinopril 2.5 mg -Continue to monitor #Diabetes type II, present on admission currently stable -Hemoglobin A1c pending -Diabetic diet -Continue glimepiride 1 mg daily -Sliding scale low dose correctional -Follow up morning blood sugar -Continue monitor Hyperlipidemia, present on admission, stable -Follow up lipid panel -Continue simvastatin DVT prophylaxis: We will hold for now until it is determined whether or not the patient will have any type of procedure in the morning after patient's procedures are completed the patient may restart home dose of Eliquis. 5 mg twice a day Code Status: Full code Disposition: Pending clinical course Wilson Charles MD Jul 28, 2017 16:03
--- NOTE | 2017-07-28 16:10 | NUR ---
PT eval not complete attempted in a.m. and pt reporting that MD wanting to defer PT to p.m. when pt would have dose of med for newly-diagnosed gout; attempted at 1600 and pt reported that he had gotten up to the BSC with his and that it was still too painful and too soon; will attempt again 07/29
[2017-07-28 16:12] LABS: Magnesium 2.2 mg/dL (1.6-2.6)
[2017-07-29] VITALS (8 sets, daily range): BP systolic 133–160; BP diastolic 70–92; PULSE 74–84; RESP 16–18; O2SAT 96–99
--- NOTE | 2017-07-29 05:09 | NUR ---
Possible D/C Today Pt. will most likely D/C today. VSS and his pain is under control. No adverse effects from new GOUT medication. He is in good spirits and ready to go home. VIGNESH
[2017-07-29] MEDS ORDERED: Vancomycin Serum Trough XX ONE (07:30)
[2017-07-29] MEDS: Insulin LISPRO 300 Unit/3 mL Inj SUBQ SCH ×4 (08:00→21:04)
--- NOTE | 2017-07-29 09:27 | PCM.PNORTH ---
Subjective Date of Service: Jul 29, 2017 Visit Information: Reason for Visit Polyarthritis Surgery/Surgery Date Post-Op Day # Date of Admission: Jul 26, 2017 at 14:09 Hospital Day # Subjective Patient reports the knees are feeling a little better. The left hand is feeling a lot better. He has not yet been up with PT. Postop General: No Shortness of Breath, No Chest Pain, Good Appetite Pain Management: PO Objective Exam Vital Signs and I/O Vital Sign - Last Date Time Temp Pulse Resp B/P Pulse Ox O2 Delivery O2 Flow Rate FiO2 07/29/17 05:50 36.8 74 16 144/92 99 Room Air Intake and Output 07/28/17 07/28/17 07/29/17 Cumulative From/Thru 15:00 23:00 07:00 07/26/17 10:52 - 07/29/17 05:50 Intake Total 1200 ml 0 ml 3302 ml Output Total 1600 ml 450 ml 7680 ml Balance -400 ml -450 ml -4378 ml Intake Oral 1200 ml 3230 ml IV Total 0 ml 0 ml 72 ml Output Urine Total 1600 ml 450 ml 7680 ml # Voids 1 # Bowel Movements 2 2 Lab & Micro Results Laboratory Tests Test 07/28/17 15:28 White Blood Count 7.6th/mm3 (3.8-10.1) Red Blood Count 3.75mil/mm3 (4.40-5.80) Hemoglobin 10.2g/dL (13.8-17.2) Hematocrit 32.2% (41.0-50.0) Mean Corpuscular Volume 85.9fL (81-100) Mean Corpuscular Hemoglobin 27.2pg (27.0-35.0) Mean Corpuscular Hemoglobin Concent 31.7% (32.0-37.0) Red Cell Distribution Width 15.0% (12.3-15.4) Platelet Count 255bil/L (150-400) Neutrophils (%) (Auto) 69.9% (40-74) Lymphocytes (%) (Auto) 14.2% (14-46) Monocytes (%) (Auto) 12.3% (4-12) Eosinophils (%) (Auto) 3.0% (0-5) Basophils (%) (Auto) 0.3% (0-3) Sodium Level 136mEq/L (134-144) Potassium Level 4.3mEq/L (3.5-5.2) Chloride Level 93mEq/L (97-108) Carbon Dioxide Level 27mmol/L (18-29) Blood Urea Nitrogen 37mg/dL (8-27) Creatinine 2.43mg/dL (0.76-1.27) Estimat Glomerular Filtration Rate 28mL/min (>59) Glucose Level 55mg/dL (60-99) Calcium Level 9.3mg/dL (8.5-10.1) Magnesium Level 2.2mg/dL (1.6-2.6) Total Bilirubin 0.2mg/dL (0.0-1.2) Aspartate Amino Transf (AST/SGOT) 15U/L (0-50) Alanine Aminotransferase (ALT/SGPT) 12U/L (0-44) Alkaline Phosphatase 68U/L (25-160) Total Protein 7.7g/dL (6.4-8.4) Albumin 3.7g/dL (3.4-5.0) Microbiology 07/26/17 Blood Culture - Preliminary, Resulted No growth at 2 days; culture examined... 07/27/17 Fluid Crystals - Final, Complete 07/26/17 MRSA (PCR) - Final, Complete Result Diagram: 07/28/17 1528 07/28/17 1528 General Appearance: Alert, Oriented X3, Cooperative, No Acute Distress Extremities: Distal Pulses Palpable Postop Sensory Motor: Distal Motor Intact, Distal Sensation Intact, NVI Distally Activity: Activity per PT Catheters: None Assessment & Plan Impression Gout Problems: Plan Weightbearing as tolerated. Continue with PT Medicine will manage antigout medications Recommend follow-up with PCP following hospital admission Viviana Griffin PA-C Jul 29, 2017 09:27
--- NOTE | 2017-07-29 12:02 | NUR ---
Pain/Ambulation Pt has had manageable pain w/ tramadol and apap, gout pain appears to be reduced r/t colchicine dose yesterday. Pt was up w/ PT up and down the halls, so patient is looking much better and per dr neves pt will likely d/c tmrw.
--- NOTE | 2017-07-29 13:17 | NUR ---
Assumed care Assumed care of patient at 1245. Provided FWW for patient.
--- NOTE | 2017-07-29 13:43 | NUR ---
Evaluation completed. Please go to "Notes" then click on "Assessments and Notes" (bottom left corner of screen). Then select appropriate discipline tab on top of screen.
--- NOTE | 2017-07-29 14:33 | PROG NOTE ---
[address] [address] PROGRESS NOTE PATIENT: ITZEL HARRISON : 1940 MR#: [id number] ADMIT: 07/26/2017 JOB ID: [id number] DATE: 07/29/2017 REASON FOR FOLLOWUP: Polyarthritis, bilateral lower extremities and left wrist and hand. INTERVAL HISTORY: Recall this is an extremely complex patient that I saw back on the evening of July 26. He is a gentleman who underwent pacer placement in his left chest June 10, then developed a DVT of his left upper extremity. This was followed by swelling and tenderness in the dorsal hand and wrist which was thought to be possibly osteomyelitis based on plain films and a nuclear med scan. He received a long course of Bactrim but continued to have diffuse erythema and pain in his left hand and wrist as well as especially over the left 2nd knuckle. More recently, and leading to this admission, the patient developed relatively sudden onset of symmetrical arthritis involving both knees and both ankles. When I saw this patient on Saturday, I was perplexed by the chronic process in his left hand and wrist, as well as the sudden onset of the lower extremity swelling. I considered a wide variety of possibilities including serum sickness due to Bactrim, gout, pseudogout, parvovirus infection, acute hep B or hepatitis C, rheumatoid arthritis, rheumatic fever, or vasculitis. The patient was initially started on vancomycin and Zosyn, but I had recommended the vanc be stopped if his MRSA screen of the nares was negative, which it was. Over the weekend, I discussed this case with one of the hospitalists and we also decided to stop the Zosyn as I really have no proof of any bacterial infection. Over the past 60 hours or so since I last saw the patient, he reports considerable improvement in both his left wrist and hand swelling as well as the swelling and erythema and tenderness in both knees and both ankles. The patient has been receiving p.r.n. colchicine for the past 24 hours and that has led to improvement in his bilateral swollen joints. PHYSICAL EXAMINATION: Today, reveals an afebrile gentleman, temperature 36.9, pulse 84, respiratory rate 16, blood pressure 133/88. He is saturating well on room air. He is in no acute distress. Examination of the head is unremarkable. His mental status is clear. Lungs are clear. Cardiac tones without murmur. Abdomen benign. His left wrist and dorsal hand are dramatically improved. Recall that on Saturday, they were swollen, erythematous, and tender and now they are almost back to normal with some minimal tenderness over the left distal metacarpal bone. His knees and ankles are both improved though still abnormal. Both ankles are swollen, somewhat boggy, but less erythematous and less tender than they were on Saturday. The knees also continue to have bilateral effusions, but he has increased range of motion and it has actually improved over Saturday evening. Lab studies are extensive and include white count 7600, platelet count normal, 255. Sed rate high at 77. Creatinine stable, 2.43. LFTs normal. Procalcitonin 0.52 which is normal for his renal function. CRP is 20, which is dramatically elevated. Uric acid was 8. Hemoglobin A1c 6.5. Urine was negative, no white cells. His knees were tapped and they both had 10-18,000 white cells and some red cells were found in both. A rheumatoid factor weakly positive at 16. TEO negative. Hep B and hep C serologies negative. ASO titer negative. Parvovirus pending. Blood cultures negative. MRSA screen negative. Crystal studies from the knee are positive for gout. The films of the knees and ankles that I had ordered on Saturday failed to show any significant abnormalities other than some soft tissue swelling. We had been looking for chondrocalcinosis. Chest x-ray was negative. IMPRESSION: This is a truly bizarre case of a gentleman with a smoldering left hand process which was thought to be osteo, who then developed dramatic arthritis of both knees and both ankles. On Saturday, I consulted with Rheumatology by telephone and reviewed the literature, considering a broad differential diagnosis. It now appears that at least the simultaneous bilateral knee and ankle arthritis is due to gout based on his crystal studies and response to colchicine. The fact that his left hand and wrist have also dramatically improved leads me to believe that this is also gout and was not osteomyelitis. RECOMMENDATIONS: 1. No antibiotics for now. 2. Continue with colchicine. 3. We cannot get an MRI scan of his left hand which would be the preferred study to try and evaluate osteomyelitis as he has a new pacer obviously. I will reorder hand films in the hopes this will give us some hint a to whether this is gout, infection, or both going on in his hands. It may be that if it remains ambiguous to me, to consult Dr. Haider of hand surgery for possible biopsy and sampling of that area. Thank you very much for involving me in this complex case.
--- NOTE | 2017-07-29 14:48 | PCM.PNMED ---
Subjective Date of Service Jul 29, 2017 Subjective Bilateral knee pain and swelling slightly improved after colchicine. Exam Vital Signs Vital Sign - Last Date Time Temp Pulse Resp B/P Pulse Ox O2 Delivery O2 Flow Rate FiO2 07/29/17 10:06 84 07/29/17 10:00 36.9 16 133/88 07/29/17 05:50 99 Room Air Intake and Output 07/28/17 07/28/17 07/29/17 Cumulative From/Thru 14:59 22:59 06:59 07/26/17 10:52 - 07/29/17 05:50 Intake Total 1200 ml 0 ml 3302 ml Output Total 1600 ml 450 ml 7680 ml Balance -400 ml -450 ml -4378 ml Intake Oral 1200 ml 3230 ml IV Total 0 ml 0 ml 72 ml Output Urine Total 1600 ml 450 ml 7680 ml # Voids 1 # Bowel Movements 2 2 Exam GEN: Patient was awake, alert, responding appropriately to questions HEENT: Pupils equal round and reactive to light, extraocular eye muscles intact , Neck soft supple, trachea midline, nomocephalic/atraumatic CV: +S1/S2, regular rate and rhythm, no murmur auscultated Respiratory: CTAB, no wheezes, rales, rhonchi GI: +bowel sounds x4, soft, compressible, nontender to palpation EXT: Left upper extremity swelling, bilateral increased in size metacarpals, +2 nonpitting edema bilaterally. Bilateral knee swelling with effusion, slightly tender. Neuro: Cranial nerves II-XII grossly intact Psych: mood and affect were appropriate IVs and Medications Medications Reviewed: Medications were reviewed in detail Lab and Diagnostics Result Diagram: 07/28/17 1528 07/28/17 1528 Cardiac Echo Impressions Left ventricular systolic function is moderately reduced with the ejection fraction visually estimated to be 35-40% with a marked dyssynchronous contraction pattern due to the paced rhythm and moderate global hypokinesis that is worse in the inferior and posterior segments, unchanged compared to the previous study, but global contractility has improved compared to the previous study and left ventricular function is moderately improved. There is mild concentric left ventricular hypertrophy with moderate proximal septal thickening. The right ventricle is normal size and systolic function is mildly reduced but appears significantly improved compared to the previous study. Pulmonary artery pressures cannot be estimated because of the lack of a measurable TR jet velocity. The left atrium is severely dilated but unchanged in size since the prior echo exam. The right atrium is normal in size and has mildly decreased in size since the prior echo exam. There is mild mitral regurgitation that grossly appears unchanged compared to the previous study and there is no other obvious valvular heart disease. Assessment & Plan 77-year-old male with past medical history of CHF, hypertension, diabetes type II, pacemaker with defibrillator, hyperlipidemia, chronic renal failure with a baseline creatinine of 2.5, left upper extremity DVT, and DJD of the lumbar spine presents to the emergency room with complaint of polyarthralgia, left arm swelling and generalized weakness. #Bilateral knee arthritis, present on admission, active -Likely Due to gouty arthritis -both knees tapped last night by . At least one of the two aspirate is positive for gout crystals. Polymorphonuclear leukocytes predominant in aspirate.wbc 9500 lt knee and 17,000. Culture pending. Infection unlikely. Antibiotics remained discontinued -Gave colchicine 1.2 mg once and then 0.6 mg after 1 hr. Indocid avoided due to advanced CKD.will give prednisone 40 mg daily fo 2-3 days until sxs improve - Initially started IV antibiotics Zosyn and vancomycin.MRS brower negative. Patient nontoxic appearing. No clinical evidence of infection so far. Discontinued vancomycin and Zosyn - Consulted infectious disease (Dr. Myers) -resumed home Eliquis. - Ultrasound of the lower extremities bilaterally pending - PT/OT ordered #Suspected Osteomyelitis of the left hand, present on admission, active -discontinue vancomycin and Zosyn until more data is available. Could not obtain MRI due to recent pace maker .Dr myers ordred XR and planning to consult orthopedics if abnormal -Discussed case with infectious disease Dr. Myers -PT/OT ordered # chronic systolic CHF, present on admission, active -Continue carvedilol 6.25 mg twice a day -Received Lasix IV 40 mEq twice a day for suspected acute exacerbation. Resumed home torsemide 20 mg by mouth twice a day -Patient's last echo was 04/09/2017 showing an EF of 25-30% with significant dyssynchronous contraction patterns, severe global hypokinesis slightly worse in the inferior wall, left ventricular wall thickness, right ventricle systolic function mildly reduced -echo repeated today with improved systolic function EF 35-40% - Continue to monitor #History of recent DVT in the left upper extremity - restarted on Eliquis. #Chronic renal failure, present on admission, stable -Patient's creatinine is 2.5 currently at its baseline - resume lisinopril #Hypertension, present on admission, stable - Currently stable with blood pressure 122/66 -Continue carvedilol 6.25 mg by mouth twice a day -resume lisinopril 2.5 mg -Continue to monitor #Diabetes type II, present on admission currently stable -Hemoglobin A1c pending -Diabetic diet -Continue glimepiride 1 mg daily -Sliding scale low dose correctional -Follow up morning blood sugar -Continue monitor Hyperlipidemia, present on admission, stable -Follow up lipid panel -Continue simvastatin DVT prophylaxis: Eliquis. 5 mg twice a day Code Status: Full code Disposition: Discharge in 1-2 days Wilson Charles MD Jul 29, 2017 14:48
[2017-07-29] MEDS ORDERED: WALK1EAC55 MC (15:05)
--- NOTE | 2017-07-29 15:40 | DRSVH ---
PROCEDURE: X-RAY LEFT HAND, MINIMUM THREE VIEWS ([id number]) INDICATIONS: ? Osteomyelitis-? gout TECHNIQUE: 3 views of the hand(s) acquired. COMPARISON: [facility], [place], [place] BONE SCAN THREE PHASE, 07/25/2017, 13:03. [facility], , XR HAND 3VW LT, 07/23/2017, 15:15. FINDINGS: Bones and joints: Bony alignment is normal. No periarticular osteopenia. Bony irregularity lucency seen on the lateral view likely involving the dorsal aspect of the second and fifth metacarpal head. Lucency along the base of the second proximal phalanx redemonstrated. Multilevel joint narrowing pr esent, most notably and severe involving the first CMC as well as the second and third MCP joints. O ld fractures of the distal radius and ulna redemonstrated. Soft tissues: No soft tissue calcifications. No focal soft tissue swelling. Dorsal soft tissue swe lling. IMPRESSION: 1. Cortical irregularity and lucency again seen on the lateral view along the dorsal aspect of the me tacarpal heads which appear similar to prior examination, suspicious for osteomyelitis. 2. Cortical irregularity lucency also visualized involving the base of the second proximal phalanx al crow the radial surface similar to prior examination also concerning for osteomyelitis 3. Moderate osteoarthritic change redemonstrated. 4. Old distal radial and ulnar fractures. 5. Dorsal soft tissue swelling redemonstrated. Dictated by: Darryl Joaquin A Interpreted: Corey Davidson MD on 07/29/2017 at 12:58 Approved by: Corey Davidson M.D. on 07/29/2017 at 15:38
--- NOTE | 2017-07-29 15:46 | DRSVH ---
PROCEDURE: US VENOUS LEG DUPLEX BILATERAL INDICATIONS: LE swelling and history of DVT TECHNIQUE: Real-time imaging, as well as color and pulse Doppler interrogation, were performed of the deep veins of both legs from the inguinal ligament to the popliteal fossa. COMPARISON: None. FINDINGS: The deep veins are normally compressible, and free of intraluminal thrombus. Color and pu lse Doppler demonstrate normal phasic intravascular flow. There is normal augmentation response to d istal compression maneuver. Small Calderon's cyst measuring roughly 7.4 x 1.9 cm. IMPRESSION: No deep venous thrombosis identified within either the left or right lower extremities. Small Calderon's cyst. Dictated by: Darryl DIEHL Interpreted: Corey Davidson MD on 07/29/2017 at 9:15 Approved by: Corey Davidson M.D. on 07/29/2017 at 15:44
[2017-07-29] MEDS: predniSONE 20 mg Tablet PO SCH (16:17)
--- NOTE | 2017-07-29 16:25 | NUR ---
NEW DME REFERRAL : Faxed clinicals and prescription to [facility], notified that tomorrow is hospital discharge day. Asked for walker to be delivered to hospital room. 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
--- NOTE | 2017-07-29 18:05 | NUR ---
pain/mobility Pt reports pain better today. likes to take minimal pain medication tramadol/tylenol effective for pain relief. Able to amb in [place] with FWW, tolerated well
[2017-07-30] VITALS (10 sets, daily range): BP systolic 166–190; BP diastolic 68–93; PULSE 63–120; RESP 17–18; O2SAT 94–100
--- NOTE | 2017-07-30 06:13 | NUR ---
Shift note Uneventful night "combination of Tramadol & Tylenol @ HS very effective in pain management through night slept well able to bend knees more easily!
--- NOTE | 2017-07-30 07:32 | NUR ---
Social Work-readiness for discharge: data:EMR Reviewed. Pt is on day 4 of hospitalization for polyarthritis per H&P. Pt is not medically stable anticipate 1-2 more days. order received for fww. SW spoke with pt and who are agreeable to arrangement of fww, DME list provided, they have no agency preference. SW requested that UR specialist assist with arranging walker. SW requested that UR specialist find which company contracts with pt's [employer]. UR specialist updated SW that the only company is [facility] [employer] and the orders and RX have been faxed in. UR specialist requested that they deliver the Fww to pts room. PT has cleared pt for home with fww. Pt and do not feel like HH would be helpful. Pt's to provide transport home. SW will continue to follow. Assessment:Pt who would benefit from Fww. Plan:Pt to discharge home when medically stable via POV. Orders and RX have been faxed to [facility] for fww. SW will continue to follow. Tracy Palacios MSW
[2017-07-30] MEDS: predniSONE 20 mg Tablet PO SCH (08:22)
[2017-07-30] MEDS: Insulin LISPRO 300 Unit/3 mL Inj SUBQ SCH ×4 (08:22→21:18)
--- NOTE | 2017-07-30 09:16 | NUR ---
Heart rate signal maintenance technician called reporting HR in 160's Pt in BR having BM. No c/o altered HR 0904 called by signal maintenance technician as HR elevated pt just fininshed in BR, no c/o dizziness, altered HR. Dr Charles just outside room and notified of above. Addendum: 07/30/17 at 1403 by LAUREN BEAR RN 1400 sheet metal technician reported elevated HR, pt up to BR. asymptomatic
--- NOTE | 2017-07-30 13:27 | PROG NOTE ---
[address] [address] PROGRESS NOTE PATIENT: ITZEL HARRISON : 1940 MR#: [id number] ADMIT: 07/26/2017 JOB ID: [id number] DATE: 07/30/2017 INFECTIOUS DISEASE FOLLOWUP NOTE: REASON FOR FOLLOWUP: Polyarticular gout. INTERVAL HISTORY: Overnight, the patient has continued his amazing recovery with colchicine therapy. Both his knees and ankles are now rapidly returning to normal. He has been sighted walking in the [place]. Recall that a couple of days ago he could not move his knees or ankles and could even get around in bed much less stand up. Meanwhile his left forearm and hand have also improved at a similarly dramatic paced, raising questions about whether he ever had osteomyelitis there. He has no fevers, chills, or sweats, reports he has no new pulmonary or GI symptoms, and is rapidly feeling back towards his normal self. PHYSICAL EXAMINATION: Reveals an afebrile gentleman temperature 36.7, pulse 71, respiratory rate 18, blood pressure 166/84. He is saturating well on room air. He is in no acute distress, quite cheerful today due to his tremendous improvement. Lungs are clear. Cardiac tones without change. Abdomen benign. His left hand and wrist have almost completely normalized. He still has a prominent left 2nd metacarpophalangeal joint, but it is no longer tender whatsoever. Likewise, his ankles and knees have returned to essentially normal, which is almost unbelievable. LABORATORIES: Include white blood count 7400 two days ago and not repeated. Creatinine was 2.43 a couple of days ago. CCP is pending because he had a moderately elevated rheumatoid factor. Parvovirus serologies have come back negative. Hep B, hep C negative. Micro studies negative, except for of course the knee aspirate, which showed gout crystals. Repeat x-ray of the hand I ordered yesterday showed cortical irregularity seen along the metacarpal heads which is suspicious for osteo. IMPRESSION: My overall sense of this case is that this was all due to gout. The patient's knees and ankles were certainly due to gout, as they completely resolved at an amazing rate once colchicine was added. I had earlier been concerned, of course, about serum sickness but that is no longer a reasonable diagnosis. The big question now is what is going on with his left hand. Recall that he had a DVT in his left upper extremity after a pacer placement and then he was found to have possible osteo which was treated with a very long course of oral Bactrim. The swelling and erythema of his hand and wrist have basically vanished in the past couple of days since we stopped the Septra and put him on colchicine and I suspect that is all gout too, though I am suspicious about the diagnosis because I am still worried a bit about the possible diagnosis of osteo based on the plain films as well as the bone scan. RECOMMENDATIONS: 1. No antibiotics. 2. Continue with gout therapy. 3. I would consider getting either CT scan of his hand to try and get a better idea about whether he has osteo there, and also perhaps more importantly having Dr. Haider of the hand surgery service come by and look. If the CT and/or Dr. Haider are in agreement there is no infection there, I think he could be sent home without antibiotics and with followup on an outpatient basis. 4. Will continue to follow this patient off antibiotics until we have some resolution. Thank you very much.
--- NOTE | 2017-07-30 14:01 | NUR ---
Spoke with [employer] and they walker is out for delivery, if it is not here in room should be here within an hour. 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
--- NOTE | 2017-07-30 14:38 | PCM.PNMED ---
Subjective Date of Service Jul 30, 2017 Subjective bilateral knee swelling and pain improving . ankle swelling and pain improving .able to ambulate now,was not able to do so prior to admission. left forearm swelling also improving . Exam Vital Signs Vital Sign - Last Date Time Temp Pulse Resp B/P Pulse Ox O2 Delivery O2 Flow Rate FiO2 07/30/17 11:40 36.7 71 18 166/84 96 Room Air Intake and Output 07/29/17 07/29/17 07/30/17 Cumulative From/Thru 15:00 23:00 07:00 07/26/17 10:52 - 07/30/17 06:10 Intake Total 1140 ml 360 ml 4802 ml Output Total 400 ml 1050 ml 9130 ml Balance 740 ml -690 ml -4328 ml Intake Oral 1140 ml 360 ml 4730 ml IV Total 72 ml Output Urine Total 400 ml 1050 ml 9130 ml # Voids 1 # Bowel Movements 1 3 Exam GEN: Patient was awake, alert, responding appropriately to questions HEENT: Pupils equal round and reactive to light, extraocular eye muscles intact , Neck soft supple, trachea midline, nomocephalic/atraumatic CV: +S1/S2, regular rate and rhythm, no murmur auscultated Respiratory: CTAB, no wheezes, rales, rhonchi GI: +bowel sounds x4, soft, compressible, nontender to palpation EXT: Left upper extremity swelling, bilateral increased in size metacarpals, +2 nonpitting edema bilaterally. Bilateral knee swelling with effusion, slightly tender. Neuro: Cranial nerves II-XII grossly intact Psych: mood and affect were appropriate IVs and Medications Medications Reviewed: Medications were reviewed in detail Lab and Diagnostics Result Diagram: 07/28/17 1528 07/28/17 1528 Cardiac Echo Impressions Left ventricular systolic function is moderately reduced with the ejection fraction visually estimated to be 35-40% with a marked dyssynchronous contraction pattern due to the paced rhythm and moderate global hypokinesis that is worse in the inferior and posterior segments, unchanged compared to the previous study, but global contractility has improved compared to the previous study and left ventricular function is moderately improved. There is mild concentric left ventricular hypertrophy with moderate proximal septal thickening. The right ventricle is normal size and systolic function is mildly reduced but appears significantly improved compared to the previous study. Pulmonary artery pressures cannot be estimated because of the lack of a measurable TR jet velocity. The left atrium is severely dilated but unchanged in size since the prior echo exam. The right atrium is normal in size and has mildly decreased in size since the prior echo exam. There is mild mitral regurgitation that grossly appears unchanged compared to the previous study and there is no other obvious valvular heart disease. Assessment & Plan 77-year-old male with past medical history of CHF, hypertension, diabetes type II, pacemaker with defibrillator, hyperlipidemia, chronic renal failure with a baseline creatinine of 2.5, left upper extremity DVT, and DJD of the lumbar spine presents to the emergency room with complaint of polyarthralgia, left arm swelling and generalized weakness. #Bilateral knee arthritis, present on admission, active -Likely Due to gouty arthritis -both knees tapped last night by . At least one of the two aspirate is positive for gout crystals. Polymorphonuclear leukocytes predominant in aspirate.wbc 9500 lt knee and 17,000. Culture pending. Infection unlikely. Antibiotics remained discontinued -Gave colchicine 1.2 mg once and then 0.6 mg after 1 hr. Indocid avoided due to advanced CKD.will give prednisone 40 mg daily fo 2-3 days until sxs improve - Initially started IV antibiotics Zosyn and vancomycin.MRS nares negative. Patient nontoxic appearing. No clinical evidence of infection so far. Discontinued vancomycin and Zosyn - Consulted infectious disease (Dr. Bueno) -resumed home Eliquis. - Ultrasound of the lower extremities negative DVT - PT/OT ordered #Suspected Osteomyelitis of the left hand, present on admission, active -patient presented with left wrist and forarm pain swelling of 4 weeks and bilateral knee and ankle swelling of few days . -bilateral knee and ankle arthritis responded very well for gout treatment with colchcine and prednisone .left wrist also responded to treatment but was improving for the last few weeks . -discontinue vancomycin and Zosyn until more data is available. recent bone scan 07/25 probable osteomyelitis. spoke with radiology bone scan image is very non specific.it can as well be due to any chronic inflammatory condition. patient has chronic joint swelling with deformity probably undiagnosed rheumatoid or osteoarthritis . Could not obtain MRI due to recent pace maker ( verified with [facility] ) . XR irregular cortex suspicious for osteomyelitis .ESR 71,CRP 19. -Discussed case with infectious disease Dr. Bueno -consulted orthopedics Dr Haider to see if he needs bone biopsy . -PT/OT ordered # chronic systolic CHF, present on admission, active -Continue carvedilol 6.25 mg twice a day -Received Lasix IV 40 mEq twice a day for suspected acute exacerbation. Resumed home torsemide 20 mg by mouth twice a day -Patient's last echo was 04/09/2017 showing an EF of 25-30% with significant dyssynchronous contraction patterns, severe global hypokinesis slightly worse in the inferior wall, left ventricular wall thickness, right ventricle systolic function mildly reduced -echo repeated today with improved systolic function EF 35-40% - Continue to monitor #History of recent DVT in the left upper extremity - restarted on Eliquis. #Chronic renal failure, present on admission, stable -Patient's creatinine is 2.5 currently at its baseline - resume lisinopril #Hypertension, present on admission, stable - Currently stable with blood pressure 122/66 -Continue carvedilol 6.25 mg by mouth twice a day -resume lisinopril 2.5 mg -Continue to monitor #Diabetes type II, present on admission currently stable -Hemoglobin A1c pending -Diabetic diet -Continue glimepiride 1 mg daily -Sliding scale low dose correctional -Follow up morning blood sugar -Continue monitor Hyperlipidemia, present on admission, stable -Follow up lipid panel -Continue simvastatin DVT prophylaxis: Eliquis. 5 mg twice a day Code Status: Full code Disposition: Discharge in 1-2 days Wilson Charles MD Jul 30, 2017 14:37
--- NOTE | 2017-07-30 15:08 | NUR ---
Pain/mobility Pain bilat knees controlled with use of tramadol and tylenol. Pt able to amb in hallway indep with FWW. present. Awaiting bone scan & Dr Haider to consult in am.
--- NOTE | 2017-07-30 15:38 | NUR ---
Social Work-readiness for discharge/multidisciplinary rounds: Data:EMR Reviewed. Pt is on day 4 of hospitalization for polyarthristis per H&P. Pt is likely medically stable tomorrow. PT has seen pt and recommending home with Fww. UR specialist Ed confirmed that fww to be delivered today from [facility]. SW spoke with pt and at bedside who state and show SW that fww has been delivered. Pt to be seen by ortho MD for his hand. Pt's to provide transport home at discharge. No anticipated discharge needs. SW will continue to follow if needs arise. Assessment:Pt who is independent at baseline. Plan:Pt to discharge home when medically stable via POV. Fww has been delivered to pt's room. No anticipated discharge needs. SW will continue to follow if needs arise. SHIRA Dixon
--- NOTE | 2017-07-30 18:22 | PCM.PNORTH ---
Subjective Date of Service: Jul 30, 2017 Visit Information: Reason for Visit Polyarthritis Surgery/Surgery Date Post-Op Day # Date of Admission: Jul 26, 2017 at 14:09 Hospital Day # Subjective I was asked to see the patient to evaluate his left hand for concerns radiographically of osteomyelitis. The patient presented to the hospital several days ago with continued pain and inflammation to the hand as well as his lower extremities. He states that the left hand swelling and pain started shortly after he had his pacemaker placed 2 months ago. His symptoms progressively worsened and started to involve his lower extremities. He has been in the hospital 5 days. He has been treated during hospitalization for gout and states that he has had a significant improvement in his symptoms over the last day. He has been able to ambulate now without difficulty and denies any pain or swelling residual to his left hand. There was concern of osteomyelitis due to severe radiographic changes as well as from a recent bone scan. He currently denies any issues in regards to the left hand or wrist. He denies any pain or paresthesias. He denies and residual swelling. He denies any constitutional symptoms including any fevers, sweats or chills. Postop General: No Shortness of Breath, No Chest Pain, Good Appetite Pain Management: PO Objective Exam Objective Gen.: Alert, oriented, no apparent distress Extremities: There are osteophytic deformities to the patient's hand most significant to the left second MCP joint, as well as mild diffuse Heberden's and Brent's nodes This is also present to the contralateral hand but to a lesser degree There is stiffness to the index finger No erythema, active drainage or signs of infection No warmth to the hand No tenderness to the second or fifth metacarpal head and necks and no tenderness to the index finger proximal phalanx Hand is well-perfused with brisk capillary refill to the fingers Completely intact sensation in the median, radial and ulnar nerve distribution Vital Signs and I/O Vital Sign - Last Date Time Temp Pulse Resp B/P Pulse Ox O2 Delivery O2 Flow Rate FiO2 07/30/17 16:20 36.6 70 18 167/88 98 Room Air Intake and Output 07/29/17 07/29/17 07/30/17 Cumulative From/Thru 15:00 23:00 07:00 07/26/17 10:52 - 07/30/17 06:10 Intake Total 1140 ml 360 ml 4802 ml Output Total 400 ml 1050 ml 9130 ml Balance 740 ml -690 ml -4328 ml Intake Oral 1140 ml 360 ml 4730 ml IV Total 72 ml Output Urine Total 400 ml 1050 ml 9130 ml # Voids 1 # Bowel Movements 1 3 Lab & Micro Results Laboratory Tests Test 07/30/17 11:23 Microbiology 07/26/17 Blood Culture - Preliminary, Resulted No growth at 2 days; culture examined... 07/27/17 Fluid Crystals - Final, Complete 07/26/17 MRSA (PCR) - Final, Complete Result Diagram: 07/28/17 1528 07/28/17 1528 Activity: Activity per PT Catheters: None Assessment & Plan Impression Gouty arthritis Problems: Plan Patient's symptoms have improved significantly with gout treatment rather than antibiotics. The patient's clinical examination does not appear to demonstrate any signs of underlying infection despite radiographic findings. I discussed 2 options with the patient and his , the first option is to proceed with the bone biopsy which would be done tomorrow afternoon versus close monitoring with serial exam and radiographs in an outpatient setting. They have opted to proceed with outpatient follow-up. I discussed with the patient as well as his if he starts developing any further increased pain, erythema, swelling to the left hand with constitutional symptoms to please contact the office for earlier follow-up otherwise I will see them back in approximately 2 weeks. Alex Haider DO Jul 30, 2017 18:22
[2017-07-31 00:19] VITALS: PULSE 71
[2017-07-31 06:07] VITALS: BP 160/87; PULSE 71; RESP 18; O2SAT 98
--- NOTE | 2017-07-31 06:13 | NUR ---
Shift note Uneventful night slept well through night no request for pain meds other than at shift start
[2017-07-31] MEDS: Insulin LISPRO 300 Unit/3 mL Inj SUBQ SCH ×2 (08:00→12:00)
[2017-07-31] MEDS: predniSONE 20 mg Tablet PO SCH (08:08)
[2017-07-31 09:09] VITALS: PULSE 72
[2017-07-31 09:15] LABS: BASOPHILS % (AUTO) 0.2 % (0-3); EOSINOPHILS % (AUTO) 0.2 % (0-5); MONOCYTES % (AUTO) 4.8 % (4-12); Mean Corpuscular Hemoglobin 27.1 pg (27.0-35.0); Mean Corpuscular Volume 85.9 fL (81-100); NEUTROPHILS % (AUTO) 84.1 % (40-74); Platelet Count 324 bil/L (150-400)
--- NOTE | 2017-07-31 09:15 | PCM.DIMED ---
Discharge Instructions Date of Service Jul 31, 2017 Dates of Hospitalization Jul 26, 2017 at 14:09 Discharge Diagnosis Discharge Diagnosis #Bilateral knee Gout arthritis with acute flare up , present on admission, resolved - Due to gouty arthritis # Initially Suspected Osteomyelitis of the left hand, UNLIKELY # chronic systolic CHF, present on admission, active #History of recent DVT in the left upper extremity #Chronic renal failure, present on admission, stable #Hypertension, present on admission, stable #Diabetes type II, present on admission currently stable # Hyperlipidemia, present on admission, stable Diet Discharge Diet: Low fat, Low Sodium, Renal Diet Activity Discharge Activity: Limited until seen by PCP Call your provider Call your provider for: Fever or Chills, Shortness of breath, Bleeding, Chest pain, Vomitting, Excessive diarrhea, Weakness (unilateral) Patient Instructions Patient Instructions # You were hospitalized due to bilateral knee and ankle joint pain and swelling. Joint fluid taped and shows gout crystals . You were treated with colchicine and prednisone and symptoms improved . You are at risk of getting another gout attack due to your kidney dysfunction hence i am staring you uric acid lowering medication allopurinol 100mg daily . your PCP may recheck uric acid and increase dose as needed. Your current uric acid s 8.0 .I am also staring you on colchicine 0.6 mg daily for short term to prevent acute attack. # you had an abnormal x ray and bone scan of your left hand . There was a concer for bone infection of left hand . The x ray and bone scan result is probably due long-standing arthritis. It does not look you have bone infection from the evidences so far. Please follow-up with Dr. Haider 9 hand surgeon ) in 2 weeks. May need to repeat x-ray and bone scan. Follow-up Provider: Dwayne Gutierrez DO Follow-up with PCP in: 1 week Provider: Alex Haider DO Follow-up in: 2 weeks Wilson Charles MD Jul 31, 2017 09:14
[2017-07-31] MEDS ORDERED: ZYL100 PO (09:18)
[2017-07-31] MEDS ORDERED: COLC0.6T52 PO (09:18)
[2017-07-31 11:20] VITALS: BP 152/85; PULSE 69; RESP 19; O2SAT 98
--- NOTE | 2017-07-31 12:55 | NUR ---
Discharge: Patient discharge to home via POV, accompanied by . Discharge notes, instructions and hard copy of prescription given and well understood by patient. All belongings taken home with him. Patient appreciative of care given to him during his hospital stay.
--- NOTE | 2017-07-31 14:48 | NUR ---
Social Work: Discharge Data & Assessment: EMR reviewed. Patient is on day 5 of hospitalization for polyarthritis per H&P. Patient has been deemed medically stable for discharge today per MD. Patient has no additional discharge needs at this time. Transportation will be provided by patient's . Plan: Patient is being discharged today. Patient will discharge home. Transportation will be provided by spouse. Patient has no additional needs at this time. SHIRA Sarmiento
--- NOTE | 2017-07-31 17:54 | PCM.DC.MED ---
Discharge Summary Date of Service Jul 31, 2017 Dates of Hospitalization Date of Hospital Admission Jul 26, 2017 at 14:09 Date of Discharge: Jul 31, 2017 Providers: Admitting Physician: Jazmyn Salcedo DO Primary Care Physician: Dwayne Gutierrez DO Attending Physician: Wilson Prakash MD Diagnosis at Time of Discharge Diagnosis at Time of Discharge #Bilateral knee Gout arthritis with acute flare up , present on admission, resolved - Due to gouty arthritis # Initially Suspected Osteomyelitis of the left hand, UNLIKELY # chronic systolic CHF, present on admission, active #History of recent DVT in the left upper extremity #Chronic renal failure, present on admission, stable #Hypertension, present on admission, stable #Diabetes type II, present on admission currently stable # Hyperlipidemia, present on admission, stable Consultations ID Dr Bueno ortho hand Dr Meliza temple knee tapped by Dr Marie Procedures Cardiac Echo Impression Left ventricular systolic function is moderately reduced with the ejection fraction visually estimated to be 35-40% with a marked dyssynchronous contraction pattern due to the paced rhythm and moderate global hypokinesis that is worse in the inferior and posterior segments, unchanged compared to the previous study, but global contractility has improved compared to the previous study and left ventricular function is moderately improved. There is mild concentric left ventricular hypertrophy with moderate proximal septal thickening. The right ventricle is normal size and systolic function is mildly reduced but appears significantly improved compared to the previous study. Pulmonary artery pressures cannot be estimated because of the lack of a measurable TR jet velocity. The left atrium is severely dilated but unchanged in size since the prior echo exam. The right atrium is normal in size and has mildly decreased in size since the prior echo exam. There is mild mitral regurgitation that grossly appears unchanged compared to the previous study and there is no other obvious valvular heart disease. Brief History per HPI Patient is a 77-year-old male with past medical history of CHF, hypertension, diabetes type II, pacemaker with defibrillator, hyperlipidemia, chronic renal failure with a baseline creatinine of 2.5, DJD of the lumbar spine presents to the emergency room with complaint of polyarthralgia, left arm swelling and generalized weakness. The patient states that he has had lower extremity edema for the last 2-3 days and this has made walking difficult. The patient also reports that he had a bout of dizziness 4-5 days ago and had a witnessed fall. The patient states that he did not hit his head or lose consciousness but his friend who witnessed the fall did have to help him considerably to stand. The patient states that he felt that the dizziness came secondary to being dehydrated. The patient currently has an AICD and pacemaker that is continuously monitored and later that day he checked his heart monitor and there was no abnormal activity that was reported. The patient states that he is currently walking with a cane but this is recent only within the last 2-3 days. At baseline he generally walks on his own without assistance. The patient was recently admitted in June for left upper extremity infection/DVT. The patient was treated with antibiotics under the guidance of Dr. Bueno. The patient recently had a bone scan in the left hand which reported osteomyelitis. The patient is currently having polyarthralgia with lower extremity edema showing positive fluid in the right greater than left knee. The patient was going to have his knee tapped in the ED however because the patient is currently on Eliquis this was deferred. PCP: Dwayne Gutierrez Tube Room Supervisor: Dr. Luciano clinical operations specialist[facility] 77-year-[facility] male with past medical history of CHF, hypertension, diabetes type II, pacemaker with defibrillator, hyperlipidemia, chronic renal failure with a baseline creatinine of 2.5, left upper extremity DVT, and DJD of the lumbar spine presents to the emergency room with complaint of polyarthralgia, left arm swelling and generalized weakness. #Bilateral knee arthritis, present on admission, active - Due to gouty arthritis -both knees tapped last night by . At least one of the two aspirate is positive for gout crystals. Polymorphonuclear leukocytes predominant in aspirate.wbc 9500 lt knee and 17,000. Culture pending. Infection unlikely. Antibiotics remained discontinued -Gave colchicine 1.2 mg once and then 0.6 mg after 1 hr. Indocid avoided due to advanced CKD.will give prednisone 40 mg daily fo 2 days .symptoms resolved . discontinued prednoisone on day of dischare -Patient has advanced CKD with uric acid 8 and at risk of another gout .started urate lowering agent allopurinol 100mg daily.PCP may increase to 300mg dailygradually,goal Uric acid 6.Also started colchicine 0.6 daily to prevent precipitation of acute gout during uric acid lowering agent initiation.may discontinue in few months .Patient responds well to colchicine and pred in acute attack - Initially started IV antibiotics Zosyn and vancomycin.MRS nares negative. Patient nontoxic appearing. No clinical evidence of infection so far. Discontinued vancomycin and Zosyn - Ultrasound of the lower extremities negative DVT - mobility much improved #Suspected Osteomyelitis of the left hand, present on admission, active -patient presented with left wrist and forarm pain swelling of 4 weeks and bilateral knee and ankle swelling of few days . -bilateral knee and ankle arthritis responded very well for gout treatment with colchcine and prednisone .left wrist also responded to treatment but was improving for the last few weeks . -discontinue vancomycin and Zosyn until more data is available. recent bone scan 07/25 probable osteomyelitis. spoke with radiology bone scan image is very non specific.it can as well be due to any chronic inflammatory condition. patient has chronic joint swelling with deformity probably undiagnosed rheumatoid or osteoarthritis . Could not obtain MRI due to recent pace maker ( verified with [facility] ) . XR irregular cortex suspicious for osteomyelitis .ESR 71,CRP 19. -Discussed case with infectious disease Dr. Bueno and orthopedics Dr Haider .infection unlikley . no need to do bone biopsy .follow up with Dr Haider in 2 weeks.may neeed to repeat bone scan in 4 weeks # chronic systolic CHF, present on admission, active -Continue carvedilol 6.25 mg twice a day -Received Lasix IV 40 mEq twice a day for suspected acute exacerbation. Resumed home torsemide 20 mg by mouth twice a day -Patient's last echo was 04/09/2017 showing an EF of 25-30% with significant dyssynchronous contraction patterns, severe global hypokinesis slightly worse in the inferior wall, left ventricular wall thickness, right ventricle systolic function mildly reduced -echo repeated on admission with improved systolic function EF 35-40% #History of recent DVT in the left upper extremity - restarted on Eliquis. #Chronic renal failure, present on admission, stable -Patient's creatinine is 2.5 currently at its baseline - resumed lisinopril #Hypertension, present on admission, stable - Currently stable with blood pressure 122/66 -Continue carvedilol 6.25 mg by mouth twice a day -resume lisinopril 2.5 mg -Continue to monitor #Diabetes type II, present on admission currently stable -Continue glimepiride 1 mg daily Hyperlipidemia, present on admission, stable -Continue simvastatin discharge home Exam Vital Signs (Last) Date Time Temp Pulse Resp B/P Pulse Ox O2 Delivery O2 Flow Rate FiO2 07/31/17 11:20 36.7 69 19 152/85 98 Room Air Exam GEN: Patient was awake, alert, responding appropriately to questions HEENT: Pupils equal round and reactive to light, extraocular eye muscles intact , Neck soft supple, trachea midline, nomocephalic/atraumatic CV: +S1/S2, regular rate and rhythm, no murmur auscultated Respiratory: CTAB, no wheezes, rales, rhonchi GI: +bowel sounds x4, soft, compressible, nontender to palpation EXT: Left upper extremity swelling, bilateral increased in size metacarpals, +2 nonpitting edema bilaterally. Bilateral knee swelling with effusion, slightly tender. Neuro: Cranial nerves II-XII grossly intact Psych: mood and affect were appropriate Test 07/26/17 12:20 07/26/17 17:00 07/26/17 19:37 07/27/17 06:47 Erythrocyte Sedimentation Rate 77mm/hr (0-30) Hemoglobin A1c 6.5% (4.8-5.6) Uric Acid 8.0mg/dL (2.6-7.2) C-Reactive Protein 19.8mg/dL (0.0-0.5) Rheumatoid Factor 16.0IU/mL (0.0-13.9) Anti-Nuclear Antibody Screen Negative (Negative) Hepatitis B Surface Antigen Negative (Negative) Hepatitis C Antibody <0.1s/co ratio (0.0-0.9) Parvovirus (B19) IgG Antibody 0.1index (0.0-0.8) Parvovirus (B19) IgM Antibody 0.4index (0.0-0.8) Streptozyme 42.0IU/mL (0.0-200.0) Urine Color Straw (YELLOW) Urine Appearance Clear (CLEAR,HAZY) Urine pH 6.0 (5.0-8.0) Urine Specific [place] 1.010 (1.003-1.035) Urine Protein Negativemg/dL (NEG,TRACE) Urine Glucose (UA) Negativemg/dL (NEGATIVE) Urine Ketones Negativemg/dL (NEGATIVE) Urine Occult Blood Small (NEGATIVE) Urine Nitrite Negative (NEGATIVE) Urine Bilirubin Negative (NEGATIVE) Urine Urobilinogen Normalmg/dL (NORMAL) Urine Leukocyte Esterase Negative (NEGATIVE) Urine RBC 0-2/hpf (0-2) Urine WBC 0-5/hpf (0-5) Urine Epithelial Cells Occasional/hpf (NONE-MOD) Urine Crystals None seen (NONE SEEN) Urine Bacteria Few/hpf (NONE-FEW) Urine Hyaline Casts None/lpf (NONE) Urine Granular Casts None seen (NONE SEEN) Urine Waxy Casts None seen (NONE SEEN) Urine Red Blood Cell Casts None seen (NONE SEEN) Urine White Blood Cell Casts None seen (NONE SEEN) Urine Mucus None seen (None Seen) Urine Trichomonas None seen (NONE SEEN) Urine Yeast None (NONE SEEN) Urinalysis Comment None Urine Culture Reflexed Not indicated Lactic Acid Level 0.7mmol/L (0.4-2.0) Triglycerides Level 102mg/dL (0-149) Cholesterol Level 163mg/dL (100-199) LDL Cholesterol, Calculated 81.600mg/dL (0-99) VLDL Cholesterol 20.400mg/dL HDL Cholesterol 61mg/dL (>39) Cholesterol/HDL Ratio 2.67 (0.0-4.4) Procalcitonin 0.52ng/mL (0.00-0.08) Test 07/27/17 17:01 07/27/17 18:12 07/27/17 21:30 07/28/17 15:28 Troponin T 0.035ug/L (0.0-0.011) Hold [place] Top Tube Received (Received) Body Fluid Source Synovial fluid Body Fluid Color Red (Clear) Body Fluid Appearance Cloudy Body Fluid WBC 33787/mm3 Body Fluid RBC 62911/mm3 Body Fluid Polynuclear WBCs 93% Body Fluid Lymphocytes 4% Body Fluid Monocytes 3% Body Fluid Eosinophils 0% Body Fluid Basophils 0% Magnesium Level 2.2mg/dL (1.6-2.6) Test 07/30/17 11:23 07/31/17 08:48 White Blood Count 10.4th/mm3 (3.8-10.1) Red Blood Count 3.84mil/mm3 (4.40-5.80) Hemoglobin 10.4g/dL (13.8-17.2) Hematocrit 33.0% (41.0-50.0) Mean Corpuscular Volume 85.9fL (81-100) Mean Corpuscular Hemoglobin 27.1pg (27.0-35.0) Mean Corpuscular Hemoglobin Concent 31.5% (32.0-37.0) Red Cell Distribution Width 14.8% (12.3-15.4) Platelet Count 324bil/L (150-400) Neutrophils (%) (Auto) 84.1% (40-74) Lymphocytes (%) (Auto) 10.1% (14-46) Monocytes (%) (Auto) 4.8% (4-12) Eosinophils (%) (Auto) 0.2% (0-5) Basophils (%) (Auto) 0.2% (0-3) Sodium Level 139mEq/L (134-144) Potassium Level 3.8mEq/L (3.5-5.2) Chloride Level 94mEq/L (97-108) Carbon Dioxide Level 27mmol/L (18-29) Blood Urea Nitrogen 38mg/dL (8-27) Creatinine 1.99mg/dL (0.76-1.27) Estimat Glomerular Filtration Rate 35mL/min (>59) Glucose Level 173mg/dL (60-99) Calcium Level 9.4mg/dL (8.5-10.1) Total Bilirubin 0.2mg/dL (0.0-1.2) Aspartate Amino Transf (AST/SGOT) 15U/L (0-50) Alanine Aminotransferase (ALT/SGPT) 13U/L (0-44) Alkaline Phosphatase 63U/L (25-160) Total Protein 6.9g/dL (6.4-8.4) Albumin 3.8g/dL (3.4-5.0) Discharge Medications Discharge Medications Allopurinol (Allopurinol) 100 Mg Tablet 100 MG PO DAILY Prescribed by: WILSON PRAKASH MD Apixaban (Eliquis) 5 Mg Tablet 5 MG PO BID (Reported) Carvedilol (Coreg) 6.25 Mg Tablet 6.25 MG PO BID (Reported) Cholecalciferol (Vitamin D3) (Vitamin D3) 5,000 Unit Capsule 5,000 UNIT PO DAILY (Reported) Colchicine (Colcrys) 0.6 Mg Tablet 0.6 MG PO DAILY Prescribed by: WILSON PRAKASH MD Glimepiride (Glimepiride) 1 Mg Tablet 1 MG PO DAILYAC (Reported) Lisinopril (Lisinopril) 2.5 Mg Tablet 2.5 MG PO QPM (Reported) Simvastatin (Simvastatin) 40 Mg Tablet 40 MG PO HS (Reported) Torsemide (Torsemide) 20 Mg Tablet 20 MG PO BID (Reported) As needed Albuterol HFA (Proair HFA) 8.5 Gm Hfa.aer.ad 2 PUFFS IH Q4 PRN PRN For Wheezing (Reported) Tramadol (Tramadol) 50 Mg Tablet 1 TAB PO QID PRN PRN For Pain (Reported) Durable Medical Equipment Walker (Ultra-Light Rollator) 1 Each Each 1 EACH [facility] (DME) Prescribed by: WILSON PRAKASH MD Followup Plan Disposition: home Discharge Diet: Low fat, Low Sodium, Renal Diet Discharge Activity: Limited until seen by PCP Patient Instructions # You were hospitalized due to bilateral knee and ankle joint pain and swelling. Joint fluid taped and shows gout crystals . You were treated with colchicine and prednisone and symptoms improved . You are at risk of getting another gout attack due to your kidney dysfunction hence i am staring you uric acid lowering medication allopurinol 100mg daily . your PCP may recheck uric acid and increase dose as needed. Your current uric acid s 8.0 .I am also staring you on colchicine 0.6 mg daily for short term to prevent acute attack. # you had an abnormal x ray and bone scan of your left hand . There was a concer for bone infection of left hand . The x ray and bone scan result is probably due long-standing arthritis. It does not look you have bone infection from the evidences so far. Please follow-up with Dr. Haider 9 hand surgeon ) in 2 weeks. May need to repeat x-ray and bone scan. Follow-up Provider: Dwayne Gutierrez DO Follow-up with PCP in: 1 week Provider: Alex Haider DO Follow-up in: 2 weeks Time spent 40 minutes coordinating discharge copies to: Alex Haider DO; Dwayne Gutierrez DO Wilson Prakash MD Jul 31, 2017 17:54 Wilson Prakash MD Jul 31, 2017 17:54
--- NOTE | 2017-07-31 19:01 | PROG NOTE ---
[address] [address] PROGRESS NOTE PATIENT: ITZEL HARRISON : 1940 MR#: [id number] ADMIT: 07/26/2017 JOB ID: [id number] DATE: 07/31/2017 INFECTIOUS DISEASE FOLLOWUP NOTE: REASON FOR FOLLOWUP: Polyarticular gout. INTERVAL HISTORY: Overnight the patient reports continued and dramatic improvement. At this point his ankles and knees have basically returned to normal and he is ready to be discharged this afternoon. His left hand and wrist have also improved dramatically coincident with treatment of the gout and stopping antibiotics. I note that the patient has been seen in the last [address] Haider of hand surgery, and Dr. Haider is in agreement that this hand inflammation likely represented gout rather than an infection. Dr. Haider offered to do a biopsy or to simply follow along and see what happens with respect to his course going forward, and the patient and his prefer the followup approach as they also believe now that this was all related to gout rather than an infection. PHYSICAL EXAMINATION: Reveals a very comfortable gentleman in no acute distress. Temp 36.7, pulse 69, respiratory rate 19, blood pressure 152/85, saturating well on room air. There has been extraordinary improvement and almost complete normalization of all the erythema in his left forearm, wrist, and hand. There is no tenderness around the knuckles whatsoever and he has excellent car distributor on that hand, all of which has dramatically improved over admission. His knees and ankles have now returned basically to normal and there is no evidence of any residual arthritis. LABORATORIES: Include a white count today 10,000. Creatinine 1.99, which continues to improve from 2.5 on admission. LFTs are normal. Cultures continue to be negative, including synovial fluid cultures as well as blood cultures. IMPRESSION: It seems clear that the polyarticular arthritis in both knees and both ankles was completely due to gout. It is also likely, though not yet proven, that the changes seen on x-ray in his left hand and the swelling and redness that have persisted in his left hand and wrist for weeks now were also due to gout as they dramatically improved with gout therapy and the ending of antibiotics. RECOMMENDATIONS: 1. I agree with Dr. Haider that the patient can be observed off antibiotics while on treatment for gout. 2. I need not follow this patient up in clinic as he can see Dr. Haider and be referred back to me by Dr. Haider or his primary if there are more concerns about infection in the left upper extremity. 3. Given the severity of his gout, and the polyarticular nature of it, it may be reasonable to refer this case to Dr. Schwartz of Rheumatology, who would welcome a consult for this patient regarding management of gout. Thank you very much.
== END 2017-07-31 12:55 | disposition home or self-care (01) | DRG 698 ==
LOC: SED 10:43 → MOC 14:09
PROVIDERS: ADMIT Neuromusculoskeletal Medicine & OMM; ATTEND Internal Medicine
PROC: 0S9D3ZX Drainage of Left Knee Joint, Percutaneous Approach, Diagnostic (ICD-10-PCS; principal; 2017-07-27)
PROC: 0S9C3ZX Drainage of Right Knee Joint, Percutaneous Approach, Diagnostic (ICD-10-PCS; 2017-07-27)
DX: M10.361 Gout due to renal impairment, right knee (principal); I50.23 Acute on chronic systolic (congestive) heart failure; I13.0 Hypertensive heart and chronic kidney disease with heart failure and stage 1 through stage 4 chronic kidney disease, or unspecified chronic kidney disease; E87.1 Hypo-osmolality and hyponatremia; E11.22 Type 2 diabetes mellitus with diabetic chronic kidney disease; N18.9 Chronic kidney disease, unspecified; M10.362 Gout due to renal impairment, left knee; M10.371 Gout due to renal impairment, right ankle and foot; M10.372 Gout due to renal impairment, left ankle and foot; M10.342 Gout due to renal impairment, left hand; I25.10 Atherosclerotic heart disease of native coronary artery without angina pectoris; E78.5 Hyperlipidemia, unspecified; I25.5 Ischemic cardiomyopathy; Z86.718 Personal history of other venous thrombosis and embolism; Z79.01 Long term (current) use of anticoagulants; Z79.84 Long term (current) use of oral hypoglycemic drugs; Z95.810 Presence of automatic (implantable) cardiac defibrillator; Z95.1 Presence of aortocoronary bypass graft